=== PATIENT | female | born 1985 | race Caucasian/White ===

== ENCOUNTER → 2017-12-25 | Outpatient (REF) | payer OTHER ==
[2017-12-25 15:54] LABS: BASO % 0.4 % (0.0-1.0); EOS # 0.1 10^3/uL (0.0-0.50); HEMOGLOBIN 12.8 g/dl (12.0-16.0); IMMATURE GRANULOCYTE % 0.4 % (0-3.0); LYMPH % 27.9 % (24.0-44.0); MEAN CORPUSCULAR HEMOGLOBIN 28.3 pg (27.0-33.0); MEAN CORPUSCULAR VOLUME 88.5 fl (80.0-96.0); MONO # 0.8 10^3/uL (0.0-0.8); MONO % 10.7 % (0.0-5.0); NEUTROPHILS # 4.2 10^3/uL (1.8-7.7); NEUTROPHILS % 58.6 % (36.0-66.0); PLATELET COUNT, AUTOMATED 290 10^3/uL (150-450); RED BLOOD COUNT 4.52 10^6/uL (4.00-5.40); RED CELL DISTRIBUTION WIDTH 14.5 % (11.5-14.5); WHITE BLOOD COUNT 7.1 10^3/uL (4.0-10.0)
[2017-12-25 16:25] LABS: ALBUMIN 3.9 GM/DL (3.2-5.2); ALBUMIN/GLOBULIN RATIO 1.18 (1.00-1.93); ALKALINE PHOSPHATASE 83 U/L (45-117); ALT/SGPT 35 U/L (12-78); ANION GAP 5 MEQ/L (8-16); AST/SGOT 15 U/L (7-37); BILIRUBIN,TOTAL 0.3 MG/DL (0.2-1.0); BLOOD UREA NITROGEN 16 MG/DL (7-18); CALCIUM LEVEL 8.5 MG/DL (8.5-10.1); CARBON DIOXIDE LEVEL 28 MEQ/L (21-32); CHLORIDE LEVEL 107 MEQ/L (98-107); FREE T4 0.93 NG/DL (0.76-1.46); GLOMERULAR FILTRATION RATE > 60.0 (>60); GLUCOSE, FASTING 90 MG/DL (70-100); POTASSIUM SERUM 3.9 MEQ/L (3.5-5.1); SODIUM LEVEL 140 MEQ/L (136-145); THYROID STIMULATING HORMONE 0.902 uIU/ML (0.358-3.740); TOTAL PROTEIN 7.2 GM/DL (6.4-8.2)
[2017-12-25 16:41] LABS: PTH INTACT 82.8 PG/ML (18.5-88.0); TOTAL 25(OH) VITAMIN D 12.9 NG/ML (30.0-100.0); VITAMIN B12 LEVEL 460 PG/ML (247-911)
[2017-12-26 09:01] LABS: CONTROL LINE HPYORI INT CTR LINE PRESENT; H PYLORI QUALITATIVE IgG NEGATIVE (NEGATIVE)
== END ==
LOC: M SFHCPLAZ 14:41
DX: R10.9 Unspecified abdominal pain (principal); Z79.1 Long term (current) use of non-steroidal anti-inflammatories (NSAID); F31.30 Bipolar disorder, current episode depressed, mild or moderate severity, unspecified; E55.9 Vitamin D deficiency, unspecified
CPT/HCPCS: 84443

== ENCOUNTER → 2018-03-03 | Outpatient (CLI) | payer OTHER | LOC: M WHC 09:24 | DX: R10.2 Pelvic and perineal pain (principal); N83.201 Unspecified ovarian cyst, right side | CPT/HCPCS: 76830 ==

== ENCOUNTER → 2018-05-15 | Outpatient (REF) | payer OTHER | LOC: M SFHCPLAZ 19:22 | DX: Z12.4 Encounter for screening for malignant neoplasm of cervix (principal); R87.612 Low grade squamous intraepithelial lesion on cytologic smear of cervix (LGSIL) | CPT/HCPCS: 88142 ==

== ENCOUNTER → 2018-06-12 | Outpatient (REF) | payer OTHER ==
[2018-06-12 15:43] LABS: BASO % 0.5 % (0.0-1.0); EOS # 0.1 10^3/uL (0.0-0.50); EOS % 1.6 % (0.0-3.0); HEMATOCRIT 43.6 % (36.0-47.0); HEMOGLOBIN 14.4 g/dl (12.0-15.5); IMMATURE GRANULOCYTE % 0.1 % (0-3.0); LYMPH # 3.1 10^3/uL (1.5-4.5); LYMPH % 37.6 % (24.0-44.0); MEAN CORPUSCULAR HEMOGLOBIN 29.1 pg (27.0-33.0); MEAN CORPUSCULAR VOLUME 88.1 fl (80.0-96.0); MONO # 0.6 10^3/uL (0.0-0.8); MONO % 6.8 % (0.0-5.0); NEUTROPHILS # 4.3 10^3/uL (1.8-7.7); NEUTROPHILS % 53.4 % (36.0-66.0); PLATELET COUNT, AUTOMATED 285 10^3/uL (150-450); RED BLOOD COUNT 4.95 10^6/uL (4.00-5.40); RED CELL DISTRIBUTION WIDTH 13.7 % (11.5-14.5); WHITE BLOOD COUNT 8.1 10^3/uL (4.0-10.0)
[2018-06-12 16:04] LABS: ESTIMATED AVERAGE GLUCOSE 117 MG/DL (60-110); HEMOGLOBIN A1c 5.7 %
[2018-06-12 16:14] LABS: FREE T4 0.87 NG/DL (0.76-1.46); THYROID STIMULATING HORMONE 0.495 uIU/ML (0.358-3.740)
== END ==
LOC: M SFHCPLAZ 13:48
DX: R53.83 Other fatigue (principal)

== ENCOUNTER → 2018-06-26 | Outpatient (CLI) | payer OTHER | LOC: M WHC 10:01 | DX: N83.201 Unspecified ovarian cyst, right side (principal) | CPT/HCPCS: 76830 ==

== ENCOUNTER → 2018-07-14 | Outpatient (REF) | payer OTHER | LOC: M SFHCWAGY 13:53 | DX: R87.612 Low grade squamous intraepithelial lesion on cytologic smear of cervix (LGSIL) (principal) ==

== ENCOUNTER 2018-08-14 05:45 | Day surgery (SDC) | payer OTHER ==
[2018-08-14 06:45] LABS: CONTROL LINE UCG INT CTR LINE PRESENT; URINE PREG TEST NEGATIVE (NEGATIVE)
[2018-08-14] MEDS: LR 1,000 ML IV (06:47)
[2018-08-14] MEDS ORDERED: PROPOFOL 200 MG/20 ML VIAL As Ordered (08:41)
[2018-08-14] MEDS ORDERED: dexameTHASONE 4 MG/ML 1ML VIAL (J1100) As Ordered (08:41)
[2018-08-14] MEDS ORDERED: fentaNYL 250 MCG/5 ML INJECTION (J3010) As Ordered (08:41)
[2018-08-14] MEDS ORDERED: LIDOCAINE 2% INJ 100 MG/5 ML SDV (FOR ANES.) As Ordered (08:41)
[2018-08-14] MEDS ORDERED: ROCURONIUM BROMIDE 50 MG/5 ML VIAL As Ordered (08:41)
[2018-08-14] MEDS ORDERED: MIDAZOLAM INJ 2 MG/2 ML VIAL (J2250) As Ordered (08:41)
[2018-08-14] MEDS ORDERED: ONDANSETRON 4MG/2ML VIAL (J2405) As Ordered (08:45)
[2018-08-14] MEDS ORDERED: KETOROLAC 60 MG/2 ML VIAL (J1885) As Ordered (08:45)
[2018-08-14] MEDS ORDERED: NEOSTIGMINE 10 MG/10 ML VIAL (J2710) As Ordered (08:47)
[2018-08-14] MEDS ORDERED: GLYCOPYRROLATE INJ 0.2 MG/ML 2 ML VIAL As Ordered ×2 (08:47→09:00)
[2018-08-14] MEDS ORDERED: METOCLOPRAMIDE INJ 10MG/2ML VIAL (J2765) IV (09:30)
[2018-08-14] MEDS ORDERED: KETOROLAC 30 MG/ML VIAL (J1885) IV (09:30)
[2018-08-14] MEDS ORDERED: LR 1,000 ML IV ×2 (09:30→09:45)
[2018-08-14] MEDS ORDERED: MEPERIDINE INJ 25 MG/ML VIAL (J2175) IV (09:30)
[2018-08-14] MEDS ORDERED: ONDANSETRON 4MG/2ML VIAL (J2405) IV (09:30)
[2018-08-14] MEDS: fentaNYL 100 MCG/2 ML INJECTION (J3010) IV ×4 (09:40→09:55)
[2018-08-14] MEDS ORDERED: NORCO, ANEXSIA 5/325MG TABLET (HYDROcodone/ACETAMINOPHEN) PO (09:45)
[2018-08-14] MEDS ORDERED: IBUPROFEN 600 MG TAB PO (09:45)
[2018-08-14] MEDS: PERCOCET 5MG/325MG TAB PO ×2 (09:50→11:04)
[2018-08-14] MEDS ORDERED: PERCOCET 5MG/325MG TAB As Ordered (11:03)
== END 2018-08-14 11:20 | disposition home or self-care (01) ==
LOC: M SDC 05:45
DX: N83.291 Other ovarian cyst, right side (principal); N80.9 Endometriosis, unspecified; J45.909 Unspecified asthma, uncomplicated; G43.909 Migraine, unspecified, not intractable, without status migrainosus; F32.9 Major depressive disorder, single episode, unspecified; E78.00 Pure hypercholesterolemia, unspecified; K58.9 Irritable bowel syndrome, unspecified; M54.2 Cervicalgia; F41.9 Anxiety disorder, unspecified; F31.9 Bipolar disorder, unspecified; M54.81 Occipital neuralgia; R56.9 Unspecified convulsions; Z79.899 Other long term (current) drug therapy
CPT/HCPCS: 58662

== ENCOUNTER 2018-09-26 09:30 | Day surgery (SDC) | payer OTHER ==
[~2018-09-26] VITALS: Ht 167.6 cm; Wt 74.4 kg
[~2018-09-26 09:30] MED LIST: BACT400T PO; BCP PO; CYMB60CA3 PO; DULO1CAP3 PO; ENSKTAB PO; IBUP-1022 PO; NAPR-49 PO; NEXI40GR PO; NORT10CA2 PO; NORT25CA2 PO; NORT75CA2 PO; NS 1,000 ML IV ONE; PROBCAP4 PO; PROP10TA56 PO; SAFYTAB PO; TOPA50TA PO; TOPI25TA10 PO; VITA500046 PO; ZOLM5TAB2 PO; ZONI25CA2 PO; [UNRECOGNIZED DRUG - CODE] PO; [UNRECOGNIZED DRUG - REMARK] PO
[2018-09-26] MEDS ORDERED: PROPOFOL 200 MG/20 ML VIAL As Ordered ONE (10:02)
[2018-09-26] MEDS ORDERED: LIDOCAINE 2% INJ 100 MG/5 ML SDV (FOR ANES.) As Ordered ONE (10:06)
[2018-09-26] MEDS ORDERED: KETOROLAC 60 MG/2 ML VIAL (J1885) As Ordered ONE (11:12)
--- NOTE | 2018-09-26 11:49 | ROOR ---
Patient Name: Apurva Woods Procedure Date: 09/26/2018 11:05 AM Date of : 1985 Age: 33 [facility] Gender: Female Note Status: Finalized Procedure: Colonoscopy Indications: Chronic diarrhea Providers: Jose G Barajas MD Referring MD: Breanne Cui NP Requesting Provider: Medicines: Monitored Anesthesia Care Complications: No immediate complications. Procedure: Pre-Anesthesia Assessment: - Prior to the procedure, a History and Physical was performed, and patient medications and allergies were reviewed. The patient is competent. The risks and benefits of the procedure and the sedation options and risks were discussed with the patient. All questions were answered and informed consent was obtained. Patient identification and proposed procedure were verified by the physician, the nurse and the anesthesiologist in the procedure room. Mental Status Examination: alert and oriented. Airway Examination: normal oropharyngeal airway and neck mobility. Respiratory Examination: clear to auscultation. CV Examination: normal. Prophylactic Antibiotics: The patient does not require prophylactic antibiotics. Prior Anticoagulants: The patient has taken no previous anticoagulant or antiplatelet agents. ASA Grade Assessment: II - A patient with mild systemic disease. After reviewing the risks and benefits, the patient was deemed in satisfactory condition to undergo the procedure. The anesthesia plan was to use monitored anesthesia care (MAC). Immediately prior to administration of medications, the patient was re-assessed for adequacy to receive sedatives. The heart rate, respiratory rate, oxygen saturations, blood pressure, adequacy of pulmonary ventilation, and response to care were monitored throughout the procedure. The physical status of the patient was re-assessed after the procedure. The Colonoscope was introduced through the anus and advanced to the terminal ileum, with identification of the appendiceal orifice and IC valve. The colonoscopy was performed without difficulty. The patient tolerated the procedure well. The quality of the bowel preparation was poor and inadequate. The terminal ileum, ileocecal valve, appendiceal orifice, and rectum were photographed. Scope insertion time was 4 minutes. Scope withdrawal time was 10 minutes. The total duration of the procedure was 14 minutes. Findings: The perianal and digital rectal examinations were normal. The terminal ileum appeared normal. A moderate amount of semi-liquid stool was found in the entire colon, interfering with visualization. Lavage of the area was performed using a large amount of sterile water, resulting in incomplete clearance with fair visualization. There is no endoscopic evidence of mass, stricture or ulcerations in the entire colon. Biopsies for histology were taken with a cold forceps from the right colon, left colon and rectosigmoid colon for evaluation of microscopic colitis. Verification of patient identification for the specimen was done by the physician and nurse using the patient's name, date and medical record number. Estimated blood loss was minimal. Non-bleeding external and internal hemorrhoids were found during retroflexion. The hemorrhoids were small. Impression: - Preparation of the colon was poor. - Preparation of the colon was inadequate. - The examined portion of the ileum was normal. - Stool in the entire examined colon. - Non-bleeding external and internal hemorrhoids. Recommendation: - Patient has a contact number available for emergencies. The signs and symptoms of potential delayed complications were discussed with the patient. Return to normal activities tomorrow. Written discharge instructions were provided to the patient. - High fiber diet. - Continue present medications. - Await pathology results. - Repeat colonoscopy date to be determined after pending pathology results are reviewed because the bowel preparation was poor and based on the biopsy results. - Based on the biopsy results you will receive a phone call from GI clinic in 2-3 weeks to review the pathology results AND/OR your results will be faxed to your Primary care physician. - Return to primary care physician. Jose G Barajas MD Jose G Barajas MD 09/26/2018 11:48:51 AM This report has been signed electronically. Number of Addenda: 0 Note Initiated On: 09/26/2018 11:05 AM Estimated Blood Loss: Estimated blood loss was minimal.
[2018-09-26 12:10] VITALS: BP 113/65
== END 2018-09-26 12:09 | disposition home or self-care (01) ==
LOC: M OPP 09:30
PROVIDERS: ATTEND Internal Medicine Gastroenterology
DX: K58.0 Irritable bowel syndrome with diarrhea (principal); K64.8 Other hemorrhoids; F31.9 Bipolar disorder, unspecified; E78.5 Hyperlipidemia, unspecified; G43.909 Migraine, unspecified, not intractable, without status migrainosus; J45.909 Unspecified asthma, uncomplicated; Z79.899 Other long term (current) drug therapy
CPT/HCPCS: 43239; 88305; J1885

== ENCOUNTER → 2018-11-06 | Outpatient (REF) | payer OTHER ==
[~2018-11-06] MED LIST changes: -NAPR-49 PO; +NAPR-50 PO; -NS 1,000 ML IV ONE
[2018-11-06 18:03] LABS: MAGNESIUM LEVEL 2.5 MG/DL (1.8-2.4); RHEUMATOID FACTOR QUANT < 10.0 IU/ML (<15.0)
[2018-11-06 18:15] LABS: VITAMIN B12 LEVEL 459 PG/ML (247-911)
[2018-11-11 00:07] LABS: ANTINUCLEAR ANTIBODIES DIRECT Negative (Negative); CYCLIC CITRULLINATED PEPTIDE 5 units (0-19); IgG P18 AB Absent (.); IgG P23 AB Absent (.); IgG P28 AB Absent (.); IgG P30 AB Absent (.); IgG P39 AB Absent (.); IgG P41 AB Present (.); IgG P45 AB Absent (.); IgG P66 AB Absent (.); IgG P93 AB Absent (.); IgM P23 AB Absent (.); IgM P39 AB Absent (.); IgM P41 AB Absent (.); LYME IgG WB INTERPRETATION Negative (.); LYME IgM WB INTERPRETATION Negative (.)
== END ==
LOC: M SFHCPLAZ 15:01
PROVIDERS: ATTEND Nurse Practitioner Adult Health
DX: M25.60 Stiffness of unspecified joint, not elsewhere classified (principal)

== ENCOUNTER → 2019-05-18 | Outpatient (CLI) | payer OTHER ==
[~2019-05-18] MED LIST changes: -DULO1CAP3 PO; +DULO1CAP6 PO; +ENSK1TAB3 PO; -ENSKTAB PO; -NAPR-50 PO; +NAPR-837 PO
--- NOTE | 2019-05-18 18:01 | REP ---
The clinical: Pelvic pain. Technique: Transabdominal pelvic ultrasound followed by transvaginal examination for better evaluation of the endometrium and adnexa with color Doppler evaluation of the ovaries. Comparison: 06/26/2018 Findings: Bladder is unremarkable and measures 7.1 x 3.3 x 6.3 cm. Heterogeneous retroverted uterus measures 5.7 x 3.9 x 5.2 cm. Endometrial complex measures 7.8 mm thickness. No discrete uterine or endometrial abnormality identified. Bilateral ovaries are normal in vascularity without torsion. Right ovary measures 6.9 x 4.6 x 5.6 cm (RI 0.47) and includes 5.1 x 4.1 x 4.8 cm complex cyst with internal echogenicity. Left ovary measures 3.5 x 1.3 x 1.5 cm (RI 0.77). No pelvic free fluid or adnexal mass lesion. Impression: 1. Relatively normal uterus and left ovary. 2. 5.1 cm complex cyst in the right ovary essentially unchanged compared to 2018. Electronically Signed by Alok Blackman MD 05/18/2019 05:53 P
== END ==
LOC: M RAD 17:05
PROVIDERS: ATTEND Obstetrics & Gynecology
DX: R10.2 Pelvic and perineal pain (principal)

== ENCOUNTER → 2019-07-06 | Outpatient (REF) | payer OTHER ==
[2019-07-06 16:51] LABS: APPEARANCE, URINE HAZY (CLEAR); BACTERIA, URINE AUTO NEGATIVE (NEGATIVE); BILIRUBIN, URINE AUTO NEGATIVE (NEGATIVE); BLOOD, URINE BLOOD NEGATIVE (NEGATIVE); COLOR, URINE YELLOW (YELLOW); GLUCOSE, URINE (UA) AUTO NEGATIVE (NEGATIVE); KETONE, URINE AUTO NEGATIVE (NEGATIVE); LEUKOCYTE ESTERASE, URINE AUTO NEGATIVE (NEGATIVE); MUCUS, URINE SMALL (NEGATIVE); NITRITE, URINE AUTO NEGATIVE (NEGATIVE); PROTEIN, URINE AUTO NEGATIVE (NEGATIVE); RBC, URINE AUTO 0 /HPF (0-3); SPECIFIC GRAVITY URINE AUTO 1.021 (1.002-1.035); SQUAMOUS EPITHELIAL CELL UR AU 2 /HPF (0-6); UROBILINOGEN, URINE AUTO 0.2 mg/dL (0.0-2.0); WBC, URINE AUTO 2 /HPF (0-3)
== END ==
LOC: M LABNEURO 12:40
PROVIDERS: ATTEND Psychiatry & Neurology Neurology
DX: N39.0 Urinary tract infection, site not specified (principal)

== ENCOUNTER → 2019-07-28 | Outpatient (CLI) | payer OTHER ==
--- NOTE | 2019-07-28 10:07 | REP ---
PELVIC ULTRASOUND: Real-time sonographic evaluation of the pelvis performed utilizing transabdominal and endovaginal technique. Comparison made with multiple prior exams dating back to 03/03/2018. Bladder measures 5.8 x 6.5 x 8.2 cm. Uterus measures 6.1 x 3.7 x 4.6 cm. Endometrial thickness is 13 mm. Dominant right ovarian cyst is again seen essentially unchanged in size compared to prior study of 03/03/2018. There are increased low level echoes diffusely throughout this complex cyst which have increased since prior studies. Left ovary is normal in size and echotexture 1.8 x 1.3 x 1.5 cm. There is no other adnexal mass or free fluid. There is no torsion of either ovary with duplex Doppler evaluation. IMPRESSION: Complex cyst right ovary has remained unchanged in size compared to prior ultrasound 03/03/2018. There are increased low level echoes throughout the cyst compared to that prior study as well as compared to the other two intervening ultrasounds. Electronically Signed by Kermit Flood MD 07/28/2019 10:32 A
== END ==
LOC: M RAD 09:07
PROVIDERS: ATTEND Obstetrics & Gynecology
DX: N83.291 Other ovarian cyst, right side (principal)

== ENCOUNTER → 2019-09-09 | Day surgery (SDC) | payer OTHER ==
[~2019-09-09] VITALS: Ht 167.6 cm; Wt 79.3 kg
[~2019-09-09] MED LIST changes: +ACETAMINOPHEN 1000MG 100ML IV BTL (OFIRMEV) (J0131 PER 10MG) As Ordered ONE; +AMIT25TA PO; +ARIP1TAB6 PO; +BUPIVACAINE HCL 0.25% 30 ML VIAL As Ordered ONE; +COLA100C5 PO; +DESFLURANE 240 ML INHALANT As Ordered ONE; +DULO30CA9 PO; +EXCETAB33 PO; +GABA-845 PO; +HYDROmorphone HCL 2 MG/ML 1ML VIAL (J1170) As Ordered ONE; +IBUP80TA PO; +KETOROLAC 60 MG/2 ML VIAL (J1885) As Ordered ONE; +LIDOCAINE 1% MDV 20ML VIAL SQ PRN; +LIDOCAINE 2% INJ 100 MG/5 ML SDV (FOR ANES.) As Ordered ONE; +LITH1TAB PO; +LR 1,000 ML IV ONE; +MEDR150I10 IM; +METOCLOPRAMIDE INJ 10MG/2ML VIAL (J2765) As Ordered ONE; +MIDAZOLAM INJ 2 MG/2 ML VIAL (J2250) As Ordered ONE; +ONDANSETRON 4MG/2ML VIAL (J2405) As Ordered ONE; +ONDANSETRON 4MG/2ML VIAL (J2405) IV ONE; +OXYC1TAB23 PO; +PERCOCET PO; +PHENYLephrine HCL 500 MCG/5 ML (100MCG/ML) SYRINGE (J2370) As Ordered ONE; +PROPOFOL 200 MG/20 ML VIAL As Ordered ONE; +ROCURONIUM BROMIDE 50 MG/5 ML VIAL As Ordered ONE; +SUGAMMADEX SODIUM 500 MG/5 ML VIAL (BRIDION) As Ordered ONE; +VITA500054 PO; +ZOLM5TAB14 PO; -ZOLM5TAB2 PO; +ZONI100C2 PO; +dexameTHASONE 4 MG/ML 1ML VIAL (J1100) As Ordered ONE; +fentaNYL 100 MCG/2 ML INJECTION (J3010) As Ordered ONE; +fentaNYL 250 MCG/5 ML INJECTION (J3010) As Ordered ONE
[2019-09-09 13:42] LABS: HEMATOCRIT 44.9 % (36.0-47.0); HEMOGLOBIN 14.5 g/dl (12.0-15.5); MEAN CORPUSCULAR HEMOGLOBIN 29.2 pg (27.0-33.0); MEAN CORPUSCULAR HGB CONC 32.3 g/dl (32.0-36.5); MEAN CORPUSCULAR VOLUME 90.3 fl (80.0-96.0); PLATELET COUNT, AUTOMATED 346 10^3/uL (150-450); RED BLOOD COUNT 4.97 10^6/uL (4.00-5.40); WHITE BLOOD COUNT 9.7 10^3/uL (4.0-10.0)
[2019-09-09 13:58] LABS: HCG, SERUM QUALITATIVE NEGATIVE (NEGATIVE)
[2019-09-09 14:14] VITALS: BP 123/80
== END | disposition home or self-care (01) ==
LOC: M SDC 13:16
PROVIDERS: ATTEND Obstetrics & Gynecology
DX: R10.2 Pelvic and perineal pain (principal); Z53.20 Procedure and treatment not carried out because of patient's decision for unspecified reasons
CPT/HCPCS: 36415; 84703; 85027; 86850; 86900; 86901; J2405

== ENCOUNTER 2019-09-10 12:23 | Day surgery (SDC) | payer OTHER ==
[~2019-09-10] VITALS: Ht 167.6 cm; Wt 83.5 kg
[~2019-09-10 12:23] MED LIST changes: -ACETAMINOPHEN 1000MG 100ML IV BTL (OFIRMEV) (J0131 PER 10MG) As Ordered ONE; -BUPIVACAINE HCL 0.25% 30 ML VIAL As Ordered ONE; -COLA100C5 PO; -DESFLURANE 240 ML INHALANT As Ordered ONE; -HYDROmorphone HCL 2 MG/ML 1ML VIAL (J1170) As Ordered ONE; -IBUP80TA PO; -KETOROLAC 60 MG/2 ML VIAL (J1885) As Ordered ONE; -LIDOCAINE 1% MDV 20ML VIAL SQ PRN; -LIDOCAINE 2% INJ 100 MG/5 ML SDV (FOR ANES.) As Ordered ONE; -LR 1,000 ML IV ONE; -METOCLOPRAMIDE INJ 10MG/2ML VIAL (J2765) As Ordered ONE; -MIDAZOLAM INJ 2 MG/2 ML VIAL (J2250) As Ordered ONE; -ONDANSETRON 4MG/2ML VIAL (J2405) As Ordered ONE; -ONDANSETRON 4MG/2ML VIAL (J2405) IV ONE; -OXYC1TAB23 PO; -PHENYLephrine HCL 500 MCG/5 ML (100MCG/ML) SYRINGE (J2370) As Ordered ONE; -PROPOFOL 200 MG/20 ML VIAL As Ordered ONE; -ROCURONIUM BROMIDE 50 MG/5 ML VIAL As Ordered ONE; -SUGAMMADEX SODIUM 500 MG/5 ML VIAL (BRIDION) As Ordered ONE; -dexameTHASONE 4 MG/ML 1ML VIAL (J1100) As Ordered ONE; -fentaNYL 100 MCG/2 ML INJECTION (J3010) As Ordered ONE; -fentaNYL 250 MCG/5 ML INJECTION (J3010) As Ordered ONE
[2019-09-10] MEDS ORDERED: fentaNYL 250 MCG/5 ML INJECTION (J3010) ONE (13:56)
[2019-09-10] MEDS ORDERED: SUGAMMADEX SODIUM 500 MG/5 ML VIAL (BRIDION) ONE (13:56)
[2019-09-10] MEDS ORDERED: dexameTHASONE 4 MG/ML 1ML VIAL (J1100) ONE (13:56)
[2019-09-10] MEDS ORDERED: HYDROmorphone HCL 2 MG/ML 1ML VIAL (J1170) ONE (13:56)
[2019-09-10] MEDS ORDERED: MIDAZOLAM INJ 2 MG/2 ML VIAL (J2250) ONE (13:56)
[2019-09-10] MEDS ORDERED: LIDOCAINE 2% INJ 100 MG/5 ML SDV (FOR ANES.) ONE (13:57)
[2019-09-10] MEDS ORDERED: PROPOFOL 200 MG/20 ML VIAL ONE (13:57)
[2019-09-10] MEDS ORDERED: ONDANSETRON 4MG/2ML VIAL (J2405) ONE (13:57)
[2019-09-10] MEDS ORDERED: METOCLOPRAMIDE INJ 10MG/2ML VIAL (J2765) ONE (13:57)
[2019-09-10] MEDS ORDERED: METHYLENE BLUE 0.5% (5MG/ML) 10 ML AMP (PROVAYBLUE)(Q9968 PER 1MG) As Ordered ONE (14:27)
[2019-09-10] MEDS ORDERED: SILVER NITRATE APPLICATOR As Ordered ONE (14:27)
[2019-09-10] MEDS ORDERED: BUPIVACAINE HCL 0.25% 30 ML VIAL As Ordered ONE (14:28)
[2019-09-10] MEDS ORDERED: PHENYLephrine HCL 500 MCG/5 ML (100MCG/ML) SYRINGE (J2370) ONE (15:21)
[2019-09-10] MEDS ORDERED: ACETAMINOPHEN 1000MG 100ML IV BTL (OFIRMEV) (J0131 PER 10MG) ONE (15:28)
[2019-09-10] MEDS ORDERED: ROCURONIUM BROMIDE 50 MG/5 ML VIAL ONE (17:22)
[2019-09-10] MEDS ORDERED: DESFLURANE 240 ML INHALANT ONE (18:08)
[2019-09-10] MEDS ORDERED: KETOROLAC 60 MG/2 ML VIAL (J1885) ONE (18:18)
[2019-09-10] MEDS ORDERED: MEPERIDINE INJ 25 MG/ML VIAL (J2175) As Ordered ONE (18:28)
[2019-09-10] MEDS: MEPERIDINE INJ 25 MG/ML VIAL (J2175) IV PRN ×2 (18:30→18:37)
[2019-09-10] MEDS ORDERED: OXYC1TAB23 PO (18:37)
[2019-09-10] MEDS ORDERED: ESMOLOL INJ 100MG/10ML VIAL As Ordered ONE (18:37)
[2019-09-10] MEDS ORDERED: fentaNYL 100 MCG/2 ML INJECTION (J3010) As Ordered ONE (18:38)
[2019-09-10] MEDS ORDERED: COLA100C5 PO (18:38)
[2019-09-10] MEDS ORDERED: IBUP80TA PO (18:38)
[2019-09-10] MEDS: fentaNYL 100 MCG/2 ML INJECTION (J3010) IV PRN ×4 (18:38→19:02)
[2019-09-10] MEDS: oxyCODONE 5MG TAB PO PRN ×2 (18:38→19:10)
[2019-09-10] MEDS ORDERED: oxyCODONE 5MG TAB As Ordered ONE ×2 (18:38→19:11)
[2019-09-10] MEDS ORDERED: ceFAZolin 1GM INJ (J0690 PER 500MG) As Ordered ONE (18:49)
[2019-09-10] MEDS ORDERED: ceFAZolin SOD 2 GM in IV 1 EA IV ONE (18:50)
[2019-09-10] MEDS ORDERED: ONDANSETRON 4MG/2ML VIAL (J2405) IV PRN ×2 (19:45→22:00)
[2019-09-10] MEDS ORDERED: LR 1,000 ML IV SCH ×2 (19:45→21:00)
[2019-09-10] MEDS ORDERED: HYDROMORPHONE HCL 0.5 MG/ 0.5 ML SYRINGE (J1170 PER 1) IV PRN (19:45)
[2019-09-10] MEDS ORDERED: LACTATED RINGER'S 500 ML IV ONE (20:00)
[2019-09-10 21:35] VITALS: BP 126/84
[2019-09-10] MEDS ORDERED: PROMETHAZINE INJ 25 MG/ML VIAL (J2550) IV PRN (22:00)
[2019-09-10] MEDS ORDERED: PERCOCET 5MG/325MG TAB PO PRN ×2 (22:00)
[2019-09-10 22:04] VITALS: BP 126/81
[2019-09-10] MEDS: KETOROLAC 30 MG/ML VIAL (J1885) IV SCH (22:27)
[2019-09-10] MEDS: LR 1,000 ML IV SCH (22:28)
[2019-09-10] MEDS: DOCUSATE SODIUM 100 MG CAP PO SCH (22:30)
[2019-09-10 23:00] VITALS: BP 128/82
[2019-09-11 00:20] VITALS: BP 130/73
[2019-09-11 01:10] VITALS: BP 134/78
[2019-09-11 02:09] VITALS: BP 132/80
[2019-09-11] MEDS: KETOROLAC 30 MG/ML VIAL (J1885) IV SCH ×2 (05:07→10:00)
[2019-09-11 06:06] LABS: BASO % 0.1 % (0.0-1.0); HEMATOCRIT 36.2 % (36.0-47.0); HEMOGLOBIN 11.6 g/dl (12.0-15.5); LYMPH # 1.6 10^3/uL (1.5-5.0); LYMPH % 14.4 % (24.0-44.0); MEAN CORPUSCULAR HEMOGLOBIN 29.2 pg (27.0-33.0); MEAN CORPUSCULAR VOLUME 91.2 fl (80.0-96.0); MONO # 0.7 10^3/uL (0.0-0.8); MONO % 6.7 % (0.0-5.0); NEUTROPHILS # 8.6 10^3/uL (1.5-8.5); NEUTROPHILS % 78.4 % (36.0-66.0); PLATELET COUNT, AUTOMATED 283 10^3/uL (150-450); RED BLOOD COUNT 3.97 10^6/uL (4.00-5.40)
[2019-09-11] MEDS: LR 1,000 ML IV SCH (06:26)
[2019-09-11 06:43] VITALS: BP 124/75
[2019-09-11] MEDS: DOCUSATE SODIUM 100 MG CAP PO SCH (08:37)
[2019-09-12] MEDS ORDERED: IBUPROFEN 800 MG TAB PO SCH
== END 2019-09-11 11:15 | disposition home or self-care (01) ==
LOC: M SDC 12:23 → M MS5PR 21:40 → M SDC 09-11 11:15
PROVIDERS: ATTEND Obstetrics & Gynecology
DX: R10.2 Pelvic and perineal pain (principal); D27.9 Benign neoplasm of unspecified ovary; N73.6 Female pelvic peritoneal adhesions (postinfective); F31.9 Bipolar disorder, unspecified; F41.9 Anxiety disorder, unspecified; G43.909 Migraine, unspecified, not intractable, without status migrainosus; K58.9 Irritable bowel syndrome, unspecified; J45.909 Unspecified asthma, uncomplicated; K21.9 Gastro-esophageal reflux disease without esophagitis; M54.2 Cervicalgia; M79.7 Fibromyalgia; F12.90 Cannabis use, unspecified, uncomplicated; Z79.899 Other long term (current) drug therapy; Z86.69 Personal history of other diseases of the nervous system and sense organs
CPT/HCPCS: 36415; 58350; 58662; 85025; 88305; J0131; J0690; J1100; J1170; J1885; J2175; J2250; J2370; J2405; J2765; J3010; Q9968

== ENCOUNTER → 2019-09-14 | Outpatient (REF) | payer OTHER ==
[~2019-09-14] MED LIST changes: +COLA100C5 PO; +IBUP80TA PO; +OXYC1TAB23 PO
[2019-09-14 14:10] LABS: ALBUMIN 4.2 GM/DL (3.2-5.2); ALT/SGPT 32 U/L (12-78); BILIRUBIN,TOTAL 0.3 MG/DL (0.2-1.0); BLOOD UREA NITROGEN 16 MG/DL (7-18); CALCIUM LEVEL 9.1 MG/DL (8.5-10.1); CARBON DIOXIDE LEVEL 24 MEQ/L (21-32); CHLORIDE LEVEL 108 MEQ/L (98-107); CREATININE FOR GFR 1.08 MG/DL (0.55-1.30); FREE T4 0.84 NG/DL (0.76-1.46); GLOMERULAR FILTRATION RATE > 60.0 (>60); GLUCOSE, FASTING 90 MG/DL (70-100); POTASSIUM SERUM 4.3 MEQ/L (3.5-5.1); PTH INTACT 22.5 PG/ML (18.5-88.0); SODIUM LEVEL 139 MEQ/L (136-145); TOTAL PROTEIN 7.9 GM/DL (6.4-8.2)
== END ==
LOC: M SFHCPLAZ 11:27
PROVIDERS: ATTEND Nurse Practitioner Adult Health
DX: E83.52 Hypercalcemia (principal)

== ENCOUNTER → 2019-10-01 | Outpatient (CLI) | payer OTHER ==
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
== END ==
LOC: M PAIN 14:30
PROVIDERS: ATTEND Nurse Practitioner Family
DX: M50.20 Other cervical disc displacement, unspecified cervical region (principal); M54.12 Radiculopathy, cervical region; G89.29 Other chronic pain; G43.909 Migraine, unspecified, not intractable, without status migrainosus; Z86.59 Personal history of other mental and behavioral disorders; J45.909 Unspecified asthma, uncomplicated; E55.9 Vitamin D deficiency, unspecified; M79.7 Fibromyalgia; Z79.899 Other long term (current) drug therapy

== ENCOUNTER → 2019-11-10 | Outpatient (CLI) | payer OTHER ==
[~2019-11-10] MED LIST changes: +ZONI100C17 PO; -ZONI100C2 PO; +ZONI25CA13 PO; -ZONI25CA2 PO
== END ==
LOC: M PAIN 14:00
PROVIDERS: ATTEND Anesthesiology
DX: Z53.20 Procedure and treatment not carried out because of patient's decision for unspecified reasons (principal)

== ENCOUNTER → 2019-12-03 | Outpatient (CLI) | payer OTHER ==
[~2019-12-03] MED LIST changes: +ISOVUE-M 300 61% 15ML VIAL (Q9967) As Ordered ONE; +LIDOCAINE 1% SDV INJ 30 ML VIAL As Ordered ONE; +NORCO, ANEXSIA 5/325MG TABLET (HYDROcodone/ACETAMINOPHEN) As Ordered ONE; +diazePAM 2 MG TAB As Ordered ONE; +methylPREDNISolone SUSP 40 MG/ML (DEPO-medrol) VIAL (J1030) As Ordered ONE
--- NOTE | 2019-12-03 13:13 | REP ---
Partial cervical spine: Two views. History: Cervical epidural steroid injection for pain. 11 seconds of fluoroscopy time is reported. Findings: A sequence of two last image hold fluoroscopically obtained spot radiographs of the cervicothoracic junction document needle position and contrast injection associated with injection procedure. Electronically Signed by Law Flores MD 12/03/2019 01:05 P
--- NOTE | 2019-12-22 05:25 | ECWPNPC ---
PATIENT NAME: GHAZALA FOX : 1985 GENDER: FEMALE VISIT DATE: 12/03/2019 DISCHARGE DATE: 12/03/19 1332 VISIT LOCKED DATE TIME: PHYSICIAN: HANNAH MOSES MD RESOURCE: HANNAH MOSES MD REASON FOR APPOINTMENT 1. CATE HISTORY OF PRESENT ILLNESS HISTORY OF PRESENT ILLNESS: PAIN THE PATIENT DESCRIBES THE PAIN... FALL RISK SCREENING: SCREENING :NO FALLS REPORTED IN THE LAST YEAR CURRENT MEDICATIONS TAKING LITHIUM CARBONATE 300 MG CAPSULE 1 CAPSULE AT BEDTIME ORALLY ONCE A DAY, NOTES: 12/02 PM TAKING AMITRIPTYLINE HCL 50 MG TABLET 1 TABLET AT BEDTIME ORALLY ONCE A DAY, NOTES: 12/02 PM TAKING GABAPENTIN 400 MG CAPSULE 1 CAPSULE ORALLY THREE TIMES DAILY, NOTES: 12/03 599 TAKING ZONISAMIDE 100 MG CAPSULE 1 CAPSULE ORALLY TWICE A DAY, NOTES: 12/03 599 TAKING CYMBALTA 30 MG CAPSULE DELAYED RELEASE PARTICLES 1 CAPSULE ORALLY ONCE A DAY WITH 60 MG =90 MG TOTAL PER DAY, NOTES: 12/02 PM TAKING DULOXETINE HCL 60 MG CAPSULE DELAYED RELEASE PARTICLES 1 CAPSULE ORALLY DAILY, NOTES: 12/02 PM TAKING DEPO-PROVERA 150 MG/ML SUSPENSION 1 ML INTRAMUSCULAR , NOTES: 08/2019 EVERY 3 MONTHS TAKING ABILIFY 5 MG TABLET 1 TABLET ORALLY ONCE A DAY, NOTES: 12/02 TAKING CLOBETASOL PROPIONATE 0.05 % CREAM 1 APPLICATION EXTERNALLY ONCE A DAY, NOTES: NONE RECENT TAKING ROPINIROLE HCL 1 MG TABLET TAKE 1 TABLET BY MOUTH EVERY DAY AT BEDTIME ORAL , NOTES: 12/02 PM TAKING PREGABALIN 50 MG CAPSULE (SCHEDULE V DRUG) TAKE 1 CAPSULE BY MOUTH TWICE DAILY . DO NOT EXCEED 2 PER 24 HOURS ORAL , NOTES: 12/03 599 TAKING D3 MAXIMUM STRENGTH 5000 UNIT CAPSULE TAKE 1 CAPSULE BY MOUTH ONCE DAILY , NOTES: 2/12PM NOT-TAKING ESOMEPRAZOLE MAGNESIUM 40 MG CAPSULE DELAYED RELEASE 1 CAPSULE ORALLY ONCE A DAY NOT-TAKING PREVACID 15 MG CAPSULE DELAYED RELEASE 1 CAPSULE ORALLY ONCE A DAY, NOTES: 20MG HAS NOT STARTED YET NOT-TAKING OXYCODONE-ACETAMINOPHEN 7.5-325 MG TABLET 1 TABLET NEEDED 2 DAILY NEEDED ORALLY , NOTES: STOPPED PER PT NOT-TAKING TEMOVATE 0.05 % OINTMENT 1 APPLICATION TO AFFECTED AREA TOPICALLY DAILY TO VAGINAL SKIN AREA PRN DISCOMFORT, NOTES: STOPPED PER PT MEDICATION LIST REVIEWED AND RECONCILED WITH THE PATIENT PAST MEDICAL HISTORY [facility]-JANETH TRICKY-2014 CT HEAD - 10/2013 BIPOLAR DEPRESSION/ANXIETY - 2012 ADM [facility] - 2014 DJD LOWER BACK (X-RAY 08/2013) CERVICAL DISC DISEASE (NEGATIVE C -SPINE 07/2013) (- RA 10/2011, - ALVIN 10/2011, - LYME TITER 01/2011) IBS SEEN BY [facility] IN 2013. ENDOMETRIOSIS/OVARIAN CYST ASTHMA CERVICO-OCCIPITAL NEURALGIA DDD LUMBAR VITAMIN D DEFICIENCY JOINT STIFFNESS PARESTHESIA OF SKIN RIGHT ANTERIOR SHOULDER PAIN HIGH CALCIUM LEVELS FIBROMYALGIA ALLERGIES N.K.D.A. SURGICAL HISTORY COLONOSCOPY 2006 CYST REMOVAL-LEFT OVARY IN 2014 COLONOSCOPY AND EDG EDG NORMAL DUODENUM ERYTHEMA IN THE ANTRUM CHRONIC ESOPHAGITIS COLONOSCOPY GRADE 1 INTERNAL HEMORRHOIDS OTHERWISE NORMAL 05/20/14 COLPOSCOPY WITH ROSEMARY 07/14/18 LAPAROSCOPY WITH FULGURATION OF ENDOMETROSIS AND DRAINAGE OF RIGHT OVARIAN CYST 08/14/18 CYST REMOVED FROM RIGHT OVARY & ENDO REMOVED & LEFT OVARY REMOVED FROM INTESTINE 08/2019 FAMILY HISTORY FATHER: ALIVE, HIGH BLOOD PRESSURE, DIVERTICULOSIS, ASTHMA MOTHER: ALIVE, MIGRAINE, HIGH CHOLESTEROL, HYPERTENSION,ASTHMA SIBLINGS: ALIVE PATERNAL GRAND FATHER: , UNKNOWN PATERNAL GRAND MOTHER: , LEUKEMIA. AT 60S MATERNAL GRAND FATHER: , [place] AT 70S MATERNAL GRAND MOTHER: ALIVE, HEART DISEASE, OVARIAN CANCER 1 BROTHER(S) , 1 SISTER(S) - HEALTHY. SOCIAL HISTORY GENERAL: TOBACCO USE ARE YOU A:NONSMOKER NEVER SMOKER HIV / HEP-C SCREENING HIV TEST OFFERED TO PATIENT:YES DATE OFFERED:09/14/2019 TEST ACCEPTED:NO HEP-C TEST OFFERED TO PATIENT:YES DATE OFFERED:09/14/2019 REASON:PATIENT DECLINED TEST ACCEPTED:NO REASON:PATIENT DECLINED BROCHURE PROVIDED TO PATIENTNO OTHERS AT HOME: BOYFRIEND AND HIS SON10- STEP- DAUGTHER 8 (EVERY OTHER WEEKEND).. EDUCATION LEVEL OF EDUCATION:NOT FINISHED COLLEGE DIET: REGULAR. LANGUAGE LANGUAGES SPOKEN:VIETNAMESE DOMESTIC VIOLENCE STATUS:PARTNERED NUMBER OF MONTHS/YEARS IN CURRENT RELATIONSHIP?USE NOTES SECTION DOES THE PATIENT DIVULGE THAT THE PARTNER HIT THEM?NO DOES THE PATIENT DIVULGE THAT THE PARTNER HITS THE CHILDREN IN THE HOUSEHOLD?NO DOES THE PATIENT CONSIDER THE PARTNER ABUSIVE?NO HAS THE PATIENT EVER BEEN IN A SITUATION INVOLVING DOMESTIC VIOLENCE?NO HAS THE PATIETN EVER BEEN INJURED, HOMEBOUND, OR HOSPITALIZED DUE TO AN ALTERCATION WITH SIGNIFICANT OTHER?NO DO YOU FEEL SAFE IN YOUR ENVIRONMENT?YES RECREATIONAL DRUG USE DRUG USE?YES HOW OFTEN AND HOW MUCH? MARIJUANA EXERCISE: NO REGULAR EXERCISE. LEARNING BARRIERS / SPECIAL NEEDS CHANGE FROM LAST VISIT?NO BARRIERS TO LEARNING?NO HEARING IMPAIRED?NO VISION IMPAIRED?YES COGNITIVELY IMPAIRED?NO WAS TOLD LEARNING DISABILITY IN SCHOOL- NEEDS EXTRA TIME WHEN READING, LEARNING, ETC. :CORRECTIVE LENSES READINESS TO LEARN?YES LEARNING PREFERENCES?NO LEARNING CAPABILITIES PRESENT?YES EMOTIONAL BARRIERS?NO SPECIAL DEVICES?NO DICTATING MACHINE TYPIST NEEDED?NO PAIN CLINIC PFS, CLERGY, PUBLIC HEALTH REFERRALS HAS THE PATIENT BEEN EDUCATED REGARDING HIS/HER PLAN OF CARE?YES HAS THE PATIENT BEEN EDUCATED REGARDING PAIN, THE RISK FOR PAIN, THE IMPORTANCE OF EFFECTIVE PAIN MANAGEMENT, AND THE PAIN ASSESSMENT PROCESS?YES LATEX QUESTIONNAIRE LATEX ALLERGY : HAVE YOU EVER DEVELOPED ANY TYPE OF REACTION AFTER HANDLING LATEX PRODUCTS SUCH RUBBER GLOVES, CONDOMS, DIAPHRAGMS, BALLOONS, SOCKS, OR UNDERWEAR?NO LATEX ALLERGY : HAVE YOU EVER DEVELOPED ANY TYPE OF REACTION DURING OR AFTER DENTAL APPOINTMENT, VAGINAL/RECTAL EXAMINATION, SURGICAL PROCEDURE, OR ANY OTHER EXPOSURE?NO DATE ASKED : 01/01/2019 LATEX RISK : HAVE YOU EVER HAD ANY DIFFICULTY BREATHING OR HIVES AFTER EATING OR HANDLING ANY FRUITS, OR VEGETABLES; SUCH KIWI, BANANAS, STONE FRUITS, OR CHESTNUTSNO LATEX RISK : DO YOU HAVE A PREVIOUS PERSONAL HISTORY OF MORE THAN NINE SURGERIES, SPINA BIFIDA, OR REPEATED CATHERIZATIONS? NO LATEX RISK : ARE YOU FREQUENTLY EXPOSED TO LATEX PRODUCTS IN YOUR OCCUPATION?NO CAFFEINE CAFFEINE USE?YES OCCASIONAL ADVANCE DIRECTIVE ADVANCE DIRECTIVE DISCUSSED WITH PATIENT:YES HCP - [facility] (PARENTS) [phone], ; [facility]OND ON HCP MUSLIM [id number] NONE NO QUAKER BELIEFS THAT WOULD IMPACT HEALTH CARE. MARITAL STATUS: .. ALCOHOL SCREENING DID YOU HAVE A DRINK CONTAINING ALCOHOL IN THE PAST YEAR?YES HOW OFTEN DID YOU HAVE SIX OR MORE DRINKS ON ONE OCCASION IN THE PAST YEAR?NEVER (0 POINTS) HOW MANY DRINKS DID YOU HAVE ON A TYPICAL DAY WHEN YOU WERE DRINKING IN THE PAST YEAR?1 OR 2 (0 POINTS) HOW OFTEN DID YOU HAVE A DRINK CONTAINING ALCOHOL IN THE PAST YEAR?MONTHLY OR LESS (1 POINT) POINTS1 INTERPRETATIONNEGATIVE OCCUPATION: [employer] IN [place]. SEXUAL HX HAD SEX IN THE LAST 12 MONTHS (VAGINAL, ORAL, OR ANAL)?YES WITHMEN ONLY USE PROTECTION?NO HAVE YOU EVER HAD AN STD?NO REVIEWD WITH PATIENT 12/03/19 BV. HOSPITALIZATION/MAJOR DIAGNOSTIC PROCEDURE [facility] 2012 REVIEW OF SYSTEMS REVIEWED BY: PROVIDER: . CONSTITUTIONAL: ANY CHANGE IN YOUR MEDICAL CONDITION? NO . CHILLS NO . FEVER NO . INFECTION: DO YOU HAVE NEW INFECTIONS? NO . DO YOU HAVE HISTORY OF MRSA? NO . MUSCULOSKELETAL: ANY NEW PATTERNS OF PAIN OR NUMBNESS? NO . GASTROENTEROLOGY: ANY NEW CHANGE IN BOWEL CONTROL? NO . GENITOURINARY: ANY NEW CHANGE IN BLADDER CONTROL? NO . IS THERE A CHANCE YOU COULD BE ? NO . HEMATOLOGY/LYMPH: DO YOU TAKE ANY BLOOD THINNERS? (FOR EXAMPLE- COUMADIN, PLAVIX, AGGRENOX, PLATEL, PRADAXA, OR XARELTO) NO . WHEN WAS YOUR LAST DOSE? DATE: TIME: . NEUROLOGY: HAVE YOU FALLEN IN THE PAST 12 MONTHS? NO . ANY NEW EXTREMITY NUMBNESS OR WEAKNESS? NO . CARDIOLOGY: DO YOU HAVE A PACEMAKER OR DEFIBRILLATOR? NO . RESPIRATORY: HAVE YOU BEEN SICK IN THE PAST WEEK? NO . FEVER NO . FLU LIKE SYMPTOMS? NO . COUGH NO . INTEGUMENTARY: DO YOU HAVE ANY RASHES OR OPEN SORES? NO . ALLERGIC/IMMUNO: ARE YOU ALLERGIC TO IV DYE? NO . ANY NEW ALLERGIES? NO . PSYCHIATRIC: DO YOU HAVE THOUGHTS OF HURTING YOURSELF OR SOMEONE ELSE? NO . ARE YOU ABUSED, NEGLECTED, OR IN AN UNSAFE ENVIRONMENT? NO . ENDOCRINOLOGY: ARE YOU DIABETIC? NO . OTHER: DO YOU NEED ANY PRESCRIPTIONS? NO . IF YES, PLEASE LIST: ____ . ANY NEW PROBLEMS WITH YOUR MEDICATIONS? NO . WHEN DID YOU LAST EAT? 12/03/19 0500 . WHEN DID YOU LAST DRINK? 12/03/19 0900 . WHAT DID YOU LAST DRINK? APPLE JUICE . NAME OF PERSON DRIVING YOU HOME? JUSTICE . DO YOU HAVE ANY OTHER QUESTIONS OR CONCERNS NO . VITAL SIGNS WT 203.0 LBS, HT 66 IN, BMI 32.76 INDEX, BP 122/69 MM HG, HR 98 /MIN, RR 18 /MIN, TEMP 99.0 F, OXYGEN SAT % 100%, NA INITIALS AW 1115, REVIEWED BY: BV. ASSESSMENTS CERVICAL DISC DISORDER WITH RADICULOPATHY, UNSPECIFIED CERVICAL REGION - M50.10 (PRIMARY) PROCEDURES PN CERVICAL EPIDURAL PRE PROCEDURE DIAGNOSIS CERVICAL DISC DISORDER WITH RADICULOPATHY POST PROCEDURE DIAGNOSIS CERVICAL DISC DISORDER WITH RADICULOPATHY PROCEDURE CERVICAL EPIDURAL STEROID INJECTION UNDER FLUOROSCOPIC GUIDANCE SURGEON DR. HANNAH MOSES REGULATORY AUDITOR NONE ANESTHESIA LOCAL PRE PROCEDURE NOTE THE PATIENT HAS A HISTORY OF CHRONIC CERVICAL PAIN. I EVALUATE THE PATIENT AND REVIEWED THE CHART. I WENT OVER THE RISKS, ALTERNATIVES, AND BENEFITS ASSOCIATED WITH THIS PROCEDURE. THE PATIENT WOULD LIKE TO PROCEED AND GIVE CONSENT TO PERFORMED THE PROCEDURE. THE PATIENT DENIES UNEXPLAINABLE WEIGHT LOSS, FEVER, CHILLS, OR NEW CHANGES IN URINARY OR BOWEL CONTROL DESCRIPTION OF PROCEDURE THE PATIENT WAS BROUGHT TO THE PROCEDURE ROOM AND PLACED IN THE PRONE POSITION. THE CERVICOTHORACIC AREA WAS CLEANED WITH BETADINE SOLUTION AND DRAPED ASEPTICALLY. THE PROCEDURE WAS DONE UNDER STERILE CONDITIONS. I CHECKED LATERALITY AND THE LEVEL WHERE THE PROCEDURE WAS GOING TO BE PERFORMED WITH THE PATIENT AND THE SUPPORTING STAFF AT THE MOMENT OF THE TIME OUT IN THE PROCEDURE ROOM. UNDER FLUOROSCOPIC GUIDANCE, THE TARGET WAS SELECTED AT THE INTERLAMINAR LEVEL OF C7-T1. LIDOCAINE WAS USED TO NUMB THE SKIN AND THE SUBCUTANEOUS TISSUE BELOW IT. EPIDURAL TUOHY NEEDLE 17-GAUGE WAS ADVANCED UNDER FLUOROSCOPIC GUIDANCE AND FOLLOWING PATIENT FEEDBACK UNTIL THE EPIDURAL SPACE WAS REACHED 6 CM DEEP INTO THE SKIN BY THE LOSS OF RESISTANCE TECHNIQUE. ISOVUE M DYE 30%, 0.25 ML, WAS INJECTED SHOWING ADEQUATE SPREAD OF THE DYE. THEN, A SOLUTION OF 3 ML OF NORMAL SALINE WITH DEPO-MEDROL 60 MG WAS INJECTED SLOWLY FOLLOWING PATIENT FEEDBACK. THERE WAS NO EVIDENCE OF BLOOD, PARESTHESIA OR CEREBROSPINAL FLUID DURING THE PROCEDURE. THE PATIENT WAS SENT TO THE RECOVERY ROOM. THE PATIENT WAS MOVING THE EXTREMITIES AND DOING WELL. THERE WAS NO COMPLICATION DURING THE PROCEDURE. FLUOROSCOPY TIME WAS 11 SECONDS POST PROCEDURE NOTE THE PATIENT WILL BE SEEN IN A FOLLOW UP IN THE NEXT FEW WEEKS. INSTRUCTIONS WERE GIVEN, QUESTIONS WERE ANSWERED, AND THE PATIENT EXPRESSED UNDERSTANDING AND AGREES WITH THE PLAN. I, ZOILA LOUIS, DOCUMENTED THE ABOVE INFORMATION ACTING A SCRIBE FOR DR. MOSES. I HAVE REVIEWED THE ABOVE DOCUMENT, WRITTEN BY ZOILA ZHAO AND I VERIFY THAT IT IS ACCURATE. DIAGNOSTIC IMAGING [facility] FLUORO GUIDE SPINE INJECTION (PAIN)[id number] PROCEDURE CODES 98651 CERVICAL/THORACIC W/ IMAGING 6045F RADXPS IN END [id number] PXD DISPOSITION & COMMUNICATION FOLLOW UP 3 WEEKS ELECTRONICALLY SIGNED BY HANNAH MOSES MD, MD ON 12/21/2019 AT 09:58 AM EST DISCLAIMER : THIS IS A VISIT SUMMARY EXTRACTED FROM THE [employer] CHART. IT IS NOT A COPY OF THE [employer] PROGRESS NOTE. MTDD
== END ==
LOC: M PAIN 11:45
PROVIDERS: ATTEND Anesthesiology
DX: M50.10 Cervical disc disorder with radiculopathy, unspecified cervical region (principal)
CPT/HCPCS: 62321; J1030; Q9967

== ENCOUNTER → 2019-12-30 | Outpatient (CLI) | payer MEDICARE ==
[~2019-12-30] MED LIST changes: -ISOVUE-M 300 61% 15ML VIAL (Q9967) As Ordered ONE; -LIDOCAINE 1% SDV INJ 30 ML VIAL As Ordered ONE; -NORCO, ANEXSIA 5/325MG TABLET (HYDROcodone/ACETAMINOPHEN) As Ordered ONE; -diazePAM 2 MG TAB As Ordered ONE; -methylPREDNISolone SUSP 40 MG/ML (DEPO-medrol) VIAL (J1030) As Ordered ONE
--- NOTE | 2020-01-19 02:49 | ECWPNPC ---
PATIENT NAME: GHAZALA FOX : 1985 GENDER: FEMALE VISIT DATE: 12/30/2019 DISCHARGE DATE: 12/30/19 1201 VISIT LOCKED DATE TIME: PHYSICIAN: BRITTANY RAMIREZ RESOURCE: BRITTANY RAMIREZ REASON FOR APPOINTMENT 1. POST CATE HISTORY OF PRESENT ILLNESS HISTORY OF PRESENT ILLNESS: HERE FOR POST PROCEDURE FOLLOW-UP. HAD CERVICAL EPIDURAL STEROID INJECTIONS. C7-T1 ON 12/03/2019. REPORTING MARKED IMPROVEMENT IN PAIN POST PROCEDURE, BUT FEELS PAIN IS GRADUALLY RETURNING TO BASELINE. RATING PAIN LEVEL AN 8/10 VAS. PAIN RADIATES INTO THE RIGHT ANTERIOR AND POSTERIOR SHOULDER REGION. DISCUSSED TREATMENT OPTIONS. PAIN THE PATIENT DESCRIBES THE PAIN... FALL RISK SCREENING: SCREENING :NO FALLS REPORTED IN THE LAST YEAR CURRENT MEDICATIONS TAKING LITHIUM CARBONATE 300 MG CAPSULE 1 CAPSULE AT BEDTIME ORALLY ONCE A DAY TAKING AMITRIPTYLINE HCL 50 MG TABLET 1 TABLET AT BEDTIME ORALLY ONCE A DAY TAKING GABAPENTIN 400 MG CAPSULE 1 CAPSULE ORALLY THREE TIMES DAILY TAKING ZONISAMIDE 100 MG CAPSULE 1 CAPSULE ORALLY TWICE A DAY TAKING CYMBALTA 30 MG CAPSULE DELAYED RELEASE PARTICLES 1 CAPSULE ORALLY ONCE A DAY WITH 60 MG =90 MG TOTAL PER DAY TAKING DULOXETINE HCL 60 MG CAPSULE DELAYED RELEASE PARTICLES 1 CAPSULE ORALLY DAILY TAKING DEPO-PROVERA 150 MG/ML SUSPENSION 1 ML INTRAMUSCULAR , NOTES: EVERY 3 MONTHS TAKING ABILIFY 5 MG TABLET 1 TABLET ORALLY ONCE A DAY TAKING CLOBETASOL PROPIONATE 0.05 % CREAM 1 APPLICATION EXTERNALLY ONCE A DAY TAKING ROPINIROLE HCL 1 MG TABLET TAKE 1 TABLET BY MOUTH EVERY DAY AT BEDTIME ORAL TAKING PREGABALIN 50 MG CAPSULE (SCHEDULE V DRUG) TAKE 1 CAPSULE BY MOUTH TWICE DAILY . DO NOT EXCEED 2 PER 24 HOURS ORAL TAKING D3 MAXIMUM STRENGTH 5000 UNIT CAPSULE TAKE 1 CAPSULE BY MOUTH ONCE DAILY NOT-TAKING ESOMEPRAZOLE MAGNESIUM 40 MG CAPSULE DELAYED RELEASE 1 CAPSULE ORALLY ONCE A DAY NOT-TAKING PREVACID 15 MG CAPSULE DELAYED RELEASE 1 CAPSULE ORALLY ONCE A DAY, NOTES: 20MG HAS NOT STARTED YET NOT-TAKING OXYCODONE-ACETAMINOPHEN 7.5-325 MG TABLET 1 TABLET NEEDED 2 DAILY NEEDED ORALLY , NOTES: STOPPED PER PT NOT-TAKING TEMOVATE 0.05 % OINTMENT 1 APPLICATION TO AFFECTED AREA TOPICALLY DAILY TO VAGINAL SKIN AREA PRN DISCOMFORT, NOTES: STOPPED PER PT MEDICATION LIST REVIEWED AND RECONCILED WITH THE PATIENT PAST MEDICAL HISTORY [facility]-2014 CT HEAD - 10/2013 BIPOLAR DEPRESSION/ANXIETY - 2012 [facility]M [facility]PERCHOLE[facility] - 2014 DJD LOWER BACK (X-RAY 08/2013) CERVICAL DISC DISEASE (NEGATIVE C -SPINE 07/2013) (- RA 10/2011, - ALVIN 10/2011, - LYME TITER 01/2011) IBS SEEN BY [facility] 2013. ENDOMETRIOSIS/OVARIAN CYST ASTHMA CERVICO-OCCIPITAL NEURALGIA DDD LUMBAR VITAMIN D DEFICIENCY JOINT STIFFNESS PARESTHESIA OF SKIN RIGHT ANTERIOR SHOULDER PAIN HIGH CALCIUM LEVELS FIBROMYALGIA ALLERGIES N.K.D.A. SURGICAL HISTORY COLONOSCOPY 2006 CYST REMOVAL-LEFT OVARY IN 2014 COLONOSCOPY AND EDG EDG NORMAL DUODENUM ERYTHEMA IN THE ANTRUM CHRONIC ESOPHAGITIS COLONOSCOPY GRADE 1 INTERNAL HEMORRHOIDS OTHERWISE NORMAL 05/20/14 COLPOSCOPY WITH ROSEMARY 07/14/18 LAPAROSCOPY WITH FULGURATION OF ENDOMETROSIS AND DRAINAGE OF RIGHT OVARIAN CYST 08/14/18 CYST REMOVED FROM RIGHT OVARY & ENDO REMOVED & LEFT OVARY REMOVED FROM INTESTINE 08/2019 FAMILY HISTORY FATHER: ALIVE, HIGH BLOOD PRESSURE, DIVERTICULOSIS, ASTHMA MOTHER: ALIVE, MIGRAINE, HIGH CHOLESTEROL, HYPERTENSION,ASTHMA SIBLINGS: ALIVE PATERNAL GRAND FATHER: , UNKNOWN PATERNAL GRAND MOTHER: , LEUKEMIA. AT 60S MATERNAL GRAND FATHER: , [place] AT 70S MATERNAL GRAND MOTHER: ALIVE, HEART DISEASE, OVARIAN CANCER 1 BROTHER(S) , 1 SISTER(S) - HEALTHY. SOCIAL HISTORY GENERAL: TOBACCO USE ARE YOU A:NONSMOKER NEVER SMOKER HIV / HEP-C SCREENING HIV TEST OFFERED TO PATIENT:YES DATE OFFERED:09/14/2019 TEST ACCEPTED:NO HEP-C TEST OFFERED TO PATIENT:YES DATE OFFERED:09/14/2019 REASON:PATIENT DECLINED TEST ACCEPTED:NO REASON:PATIENT DECLINED BROCHURE PROVIDED TO PATIENTNO OTHERS AT HOME: BOYFRIEND AND HIS SON10- STEP- DAUGTHER 8 (EVERY OTHER WEEKEND).. EDUCATION LEVEL OF EDUCATION:NOT FINISHED COLLEGE DIET: REGULAR. LANGUAGE LANGUAGES SPOKEN:MALAWIAN DOMESTIC VIOLENCE STATUS:PARTNERED NUMBER OF MONTHS/YEARS IN CURRENT RELATIONSHIP?USE NOTES SECTION DOES THE PATIENT DIVULGE THAT THE PARTNER HIT THEM?NO DOES THE PATIENT DIVULGE THAT THE PARTNER HITS THE CHILDREN IN THE HOUSEHOLD?NO DOES THE PATIENT CONSIDER THE PARTNER ABUSIVE?NO HAS THE PATIENT EVER BEEN IN A SITUATION INVOLVING DOMESTIC VIOLENCE?NO HAS THE PATIETN EVER BEEN INJURED, HOMEBOUND, OR HOSPITALIZED DUE TO AN ALTERCATION WITH SIGNIFICANT OTHER?NO DO YOU FEEL SAFE IN YOUR ENVIRONMENT?YES RECREATIONAL DRUG USE DRUG USE?YES HOW OFTEN AND HOW MUCH? MARIJUANA EXERCISE: NO REGULAR EXERCISE. LEARNING BARRIERS / SPECIAL NEEDS CHANGE FROM LAST VISIT?NO BARRIERS TO LEARNING?NO HEARING IMPAIRED?NO VISION IMPAIRED?YES COGNITIVELY IMPAIRED?NO WAS TOLD LEARNING DISABILITY IN SCHOOL- NEEDS EXTRA TIME WHEN READING, LEARNING, ETC. :CORRECTIVE LENSES READINESS TO LEARN?YES LEARNING PREFERENCES?NO LEARNING CAPABILITIES PRESENT?YES EMOTIONAL BARRIERS?NO SPECIAL DEVICES?NO ADMISSION NURSE NEEDED?NO PAIN CLINIC PFS, CLERGY, PUBLIC HEALTH REFERRALS HAS THE PATIENT BEEN EDUCATED REGARDING HIS/HER PLAN OF CARE?YES HAS THE PATIENT BEEN EDUCATED REGARDING PAIN, THE RISK FOR PAIN, THE IMPORTANCE OF EFFECTIVE PAIN MANAGEMENT, AND THE PAIN ASSESSMENT PROCESS?YES LATEX QUESTIONNAIRE LATEX ALLERGY : HAVE YOU EVER DEVELOPED ANY TYPE OF REACTION AFTER HANDLING LATEX PRODUCTS SUCH RUBBER GLOVES, CONDOMS, DIAPHRAGMS, BALLOONS, SOCKS, OR UNDERWEAR?NO LATEX ALLERGY : HAVE YOU EVER DEVELOPED ANY TYPE OF REACTION DURING OR AFTER DENTAL APPOINTMENT, VAGINAL/RECTAL EXAMINATION, SURGICAL PROCEDURE, OR ANY OTHER EXPOSURE?NO LATEX RISK : HAVE YOU EVER HAD ANY DIFFICULTY BREATHING OR HIVES AFTER EATING OR HANDLING ANY FRUITS, OR VEGETABLES; SUCH KIWI, BANANAS, STONE FRUITS, OR CHESTNUTSNO LATEX RISK : DO YOU HAVE A PREVIOUS PERSONAL HISTORY OF MORE THAN NINE SURGERIES, SPINA BIFIDA, OR REPEATED CATHERIZATIONS? NO LATEX RISK : ARE YOU FREQUENTLY EXPOSED TO LATEX PRODUCTS IN YOUR OCCUPATION?NO DATE ASKED : 01/01/2019 CAFFEINE CAFFEINE USE?YES OCCASIONAL ADVANCE DIRECTIVE ADVANCE DIRECTIVE DISCUSSED WITH PATIENT:YES HCP - [facility] (PARENTS) [phone], ; [facility] SECOND ON HCP RELIGIOUS [id number] NONE NO VOODOO BELIEFS THAT WOULD IMPACT HEALTH CARE. MARITAL STATUS: .. ALCOHOL SCREENING DID YOU HAVE A DRINK CONTAINING ALCOHOL IN THE PAST YEAR?YES HOW OFTEN DID YOU HAVE SIX OR MORE DRINKS ON ONE OCCASION IN THE PAST YEAR?NEVER (0 POINTS) HOW MANY DRINKS DID YOU HAVE ON A TYPICAL DAY WHEN YOU WERE DRINKING IN THE PAST YEAR?1 OR 2 (0 POINTS) HOW OFTEN DID YOU HAVE A DRINK CONTAINING ALCOHOL IN THE PAST YEAR?MONTHLY OR LESS (1 POINT) POINTS1 INTERPRETATIONNEGATIVE OCCUPATION: [employer] AT IN [place]. SEXUAL HX HAD SEX IN THE LAST 12 MONTHS (VAGINAL, ORAL, OR ANAL)?YES WITHMEN ONLY USE PROTECTION?NO HAVE YOU EVER HAD AN STD?NO HOSPITALIZATION/MAJOR DIAGNOSTIC PROCEDURE [facility] 2013 REVIEW OF SYSTEMS REVIEWED BY: PROVIDER: BRITTANY HUTCHINS . CONSTITUTIONAL: ANY CHANGE IN YOUR MEDICAL CONDITION? NO . CHILLS NO . FEVER NO . INFECTION: DO YOU HAVE NEW INFECTIONS? NO . DO YOU HAVE HISTORY OF MRSA? NO . MUSCULOSKELETAL: ANY NEW PATTERNS OF PAIN OR NUMBNESS? YES, STATES PAIN MOVING TO THE FRONT OF THE RIGHT SHOULDER AND MOVING UP HER HEAD AND INTO HER TEMPLES . GASTROENTEROLOGY: ANY NEW CHANGE IN BOWEL CONTROL? NO . GENITOURINARY: ANY NEW CHANGE IN BLADDER CONTROL? NO . IS THERE A CHANCE YOU COULD BE ? NO . HEMATOLOGY/LYMPH: DO YOU TAKE ANY BLOOD THINNERS? (FOR EXAMPLE- COUMADIN, PLAVIX, AGGRENOX, PLATEL, PRADAXA, OR XARELTO) NO . WHEN WAS YOUR LAST DOSE? DATE: TIME: . NEUROLOGY: HAVE YOU FALLEN IN THE PAST 12 MONTHS? NO . ANY NEW EXTREMITY NUMBNESS OR WEAKNESS? NO . CARDIOLOGY: DO YOU HAVE A PACEMAKER OR DEFIBRILLATOR? NO . RESPIRATORY: HAVE YOU BEEN SICK IN THE PAST WEEK? NO . FEVER NO . FLU LIKE SYMPTOMS? NO . COUGH NO . INTEGUMENTARY: DO YOU HAVE ANY RASHES OR OPEN SORES? NO . ALLERGIC/IMMUNO: ARE YOU ALLERGIC TO IV DYE? NO . ANY NEW ALLERGIES? NO . PSYCHIATRIC: DO YOU HAVE THOUGHTS OF HURTING YOURSELF OR SOMEONE ELSE? NO . ARE YOU ABUSED, NEGLECTED, OR IN AN UNSAFE ENVIRONMENT? NO . ENDOCRINOLOGY: ARE YOU DIABETIC? NO . OTHER: DO YOU NEED ANY PRESCRIPTIONS? NO . IF YES, PLEASE LIST: ____ . ANY NEW PROBLEMS WITH YOUR MEDICATIONS? NO . WHEN DID YOU LAST EAT? ____ . WHEN DID YOU LAST DRINK? ____ . WHAT DID YOU LAST DRINK? ____ . NAME OF PERSON DRIVING YOU HOME? ____ . DO YOU HAVE ANY OTHER QUESTIONS OR CONCERNS NO . VITAL SIGNS WT 209.8 LBS, HT 66 IN, BMI 33.86 INDEX, BP 122/79 MM HG, HR 114 /MIN, RR 18 /MIN, TEMP 99.2 F, OXYGEN SAT % 100%, SAFE IN ENV? (Y/N) YES, NA INITIALS AW 1134, REVIEWED BY: NAHUM. EXAMINATION GENERAL EXAMINATION: GENERALNO ACUTE DISTRESS, WELL NOURISHED AND HYDRATED. PSYCHAPPROPRIATE MOOD AND AFFECT . NECK:NO LYMPHADENOPATHY, SUPPLE, NO THYROMEGALLY. LUNGS: LUNG SOUNDS ARE CLEAR . HEART: HEART RATE REGULAR . MUSCULOSKELETAL:*, MUSCLE STRENGTH TESTING 5/5 BILATERAL UPPER EXTREMITIES. . CERVICAL:+ FOR PAIN WITH PALPATION OF CERVICAL SPINE. + FOR PAIN WITH PALPATION OF CERVICAL PARASPINALS. . NEUROLOGIC EXAM: ROJM LIMITED RIGHT UPPER EXTREMITY>LEFT WEAKNESS OVER RIGHT ARM. DIAGNOSTIC TESTS REVIEWED CERVICAL MRI. ASSESSMENTS CERVICAL DISC DISORDER WITH RADICULOPATHY, UNSPECIFIED CERVICAL REGION - M50.10 (PRIMARY) TREATMENT CERVICAL DISC DISORDER WITH RADICULOPATHY, UNSPECIFIED CERVICAL REGION NOTES: CONTINUE CONSERVATIVE CARE. PROCEDURE CODES [id number] ESTABILISHED PATIENT [facility] CHARGE DISPOSITION & COMMUNICATION FOLLOW UP 6 WEEKS F/U W BRITTANY-NECK PAIN/RIGHT ELECTRONICALLY SIGNED BY CUONG GONZALEZ ON 01/18/2020 AT 09:53 AM EDT DISCLAIMER : THIS IS A VISIT SUMMARY EXTRACTED FROM THE [employer] CHART. IT IS NOT A COPY OF THE [employer] PROGRESS NOTE. YURY
== END ==
LOC: M PAIN 10:45
PROVIDERS: ATTEND Nurse Practitioner Family
DX: M50.10 Cervical disc disorder with radiculopathy, unspecified cervical region (principal); F31.30 Bipolar disorder, current episode depressed, mild or moderate severity, unspecified; Z79.899 Other long term (current) drug therapy

== ENCOUNTER → 2020-02-17 | Outpatient (CLI) | payer OTHER ==
--- NOTE | 2020-02-20 01:15 | ECWPNPC ---
PATIENT NAME: GHAZALA FOX : 1985 GENDER: FEMALE VISIT DATE: 02/17/2020 DISCHARGE DATE: 02/17/20 1001 VISIT LOCKED DATE TIME: PHYSICIAN: BRITTANY RAMIREZ RESOURCE: BRITTANY RAMIREZ REASON FOR APPOINTMENT [phone]. [phone] WEEKS AFTER ORTHO VISIT HISTORY OF PRESENT ILLNESS HISTORY OF PRESENT ILLNESS: . PATIENT HAS AGREED TO TELEPHONE VISIT TODAY. SUFFERS FROM CHRONIC NECK PAIN WITH RADIATION INTO RIGHT UPPER ARM. WAS SEEN BY ORTHOPEDIC SURGEON AND SURGERY IS PENDING FOR HER NECK. RATING PAIN LEVEL AN 8/10 VAS. DESCRIBES PAIN INTERMITTENT AND STABBING. PAIN THE PATIENT DESCRIBES THE PAIN... FALL RISK SCREENING: SCREENING :NO FALLS REPORTED IN THE LAST YEAR CURRENT MEDICATIONS TAKING LITHIUM CARBONATE 300 MG CAPSULE 1 CAPSULE AT BEDTIME ORALLY ONCE A DAY TAKING AMITRIPTYLINE HCL 50 MG TABLET 1 TABLET AT BEDTIME ORALLY ONCE A DAY TAKING GABAPENTIN 400 MG CAPSULE 1 CAPSULE ORALLY TWICE DAILY TAKING ZONISAMIDE 100 MG CAPSULE 1 CAPSULE ORALLY TWICE A DAY TAKING CYMBALTA 30 MG CAPSULE DELAYED RELEASE PARTICLES 1 CAPSULE ORALLY ONCE A DAY WITH 60 MG =90 MG TOTAL PER DAY TAKING DULOXETINE HCL 60 MG CAPSULE DELAYED RELEASE PARTICLES 1 CAPSULE ORALLY DAILY TAKING DEPO-PROVERA 150 MG/ML SUSPENSION 1 ML INTRAMUSCULAR , NOTES: EVERY 3 MONTHS TAKING ABILIFY 5 MG TABLET 1 TABLET ORALLY ONCE A DAY TAKING CLOBETASOL PROPIONATE 0.05 % CREAM 1 APPLICATION EXTERNALLY ONCE A DAY TAKING ROPINIROLE HCL 1 MG TABLET TAKE 1 TABLET BY MOUTH EVERY DAY AT BEDTIME ORAL TAKING PREGABALIN 50 MG CAPSULE (SCHEDULE V DRUG) TAKE 1 CAPSULE BY MOUTH TWICE DAILY . DO NOT EXCEED 2 PER 24 HOURS ORAL TAKING D3 MAXIMUM STRENGTH 5000 UNIT CAPSULE 1 CAP ORALLY DAILY NOT-TAKING ESOMEPRAZOLE MAGNESIUM 20 MG CAPSULE DELAYED RELEASE 1 CAPSULE ORALLY ONCE A DAY NOT-TAKING OXYCODONE-ACETAMINOPHEN 7.5-325 MG TABLET 1 TABLET NEEDED 2 DAILY NEEDED ORALLY , NOTES: STOPPED PER PT NOT-TAKING TEMOVATE 0.05 % OINTMENT 1 APPLICATION TO AFFECTED AREA TOPICALLY DAILY TO VAGINAL SKIN AREA PRN DISCOMFORT, NOTES: STOPPED PER PT MEDICATION LIST REVIEWED AND RECONCILED WITH THE PATIENT PAST MEDICAL HISTORY [facility] NE[facility]-JANETH ARAUZ-2014 CT HEAD - 10/2013 BIPOLAR DEPRESSION/ANXIETY - 2012 ADM U - CURRENTLY C [facility] HYPERCHOLESTREMIA - 2014 DJD LOWER BACK (X-RAY 08/2013) CERVICAL DISC DISEASE (NEGATIVE C -SPINE 07/2013) (- RA 10/2011, - ALVIN 10/2011, - LYME TITER 01/2011) IBS SEEN BY [facility] IN 2013. ENDOMETRIOSIS/OVARIAN CYST ASTHMA CERVICO-OCCIPITAL NEURALGIA DDD LUMBAR VITAMIN D DEFICIENCY JOINT STIFFNESS PARESTHESIA OF SKIN RIGHT ANTERIOR SHOULDER PAIN HIGH CALCIUM LEVELS FIBROMYALGIA ALLERGIES N.K.D.A. SURGICAL HISTORY COLONOSCOPY 2006 CYST REMOVAL-LEFT OVARY IN 2014 COLONOSCOPY AND EDG EDG NORMAL DUODENUM ERYTHEMA IN THE ANTRUM CHRONIC ESOPHAGITIS COLONOSCOPY GRADE 1 INTERNAL HEMORRHOIDS OTHERWISE NORMAL 05/20/14 COLPOSCOPY WITH ROSEMARY 07/14/18 LAPAROSCOPY WITH FULGURATION OF ENDOMETROSIS AND DRAINAGE OF RIGHT OVARIAN CYST 08/14/18 CYST REMOVED FROM RIGHT OVARY & ENDO REMOVED & LEFT OVARY REMOVED FROM INTESTINE 08/2019 FAMILY HISTORY FATHER: ALIVE, HIGH BLOOD PRESSURE, DIVERTICULOSIS, ASTHMA MOTHER: ALIVE, MIGRAINE, HIGH CHOLESTEROL, HYPERTENSION,ASTHMA SIBLINGS: ALIVE PATERNAL GRAND FATHER: , UNKNOWN PATERNAL GRAND MOTHER: , LEUKEMIA. AT 60S MATERNAL GRAND FATHER: , IN AT 70S MATERNAL GRAND MOTHER: ALIVE, HEART DISEASE, OVARIAN CANCER 1 BROTHER(S) , 1 SISTER(S) - HEALTHY. SOCIAL HISTORY GENERAL: TOBACCO USE ARE YOU A:NONSMOKER NEVER SMOKER LATEX QUESTIONNAIRE LATEX ALLERGY : HAVE YOU EVER DEVELOPED ANY TYPE OF REACTION AFTER HANDLING LATEX PRODUCTS SUCH RUBBER GLOVES, CONDOMS, DIAPHRAGMS, BALLOONS, SOCKS, OR UNDERWEAR?NO LATEX ALLERGY : HAVE YOU EVER DEVELOPED ANY TYPE OF REACTION DURING OR AFTER DENTAL APPOINTMENT, VAGINAL/RECTAL EXAMINATION, SURGICAL PROCEDURE, OR ANY OTHER EXPOSURE?NO DATE ASKED : 01/01/2019 LATEX RISK : HAVE YOU EVER HAD ANY DIFFICULTY BREATHING OR HIVES AFTER EATING OR HANDLING ANY FRUITS, OR VEGETABLES; SUCH KIWI, BANANAS, STONE FRUITS, OR CHESTNUTSNO LATEX RISK : DO YOU HAVE A PREVIOUS PERSONAL HISTORY OF MORE THAN NINE SURGERIES, SPINA BIFIDA, OR REPEATED CATHERIZATIONS? NO LATEX RISK : ARE YOU FREQUENTLY EXPOSED TO LATEX PRODUCTS IN YOUR OCCUPATION?NO ALCOHOL SCREENING DID YOU HAVE A DRINK CONTAINING ALCOHOL IN THE PAST YEAR?YES HOW OFTEN DID YOU HAVE SIX OR MORE DRINKS ON ONE OCCASION IN THE PAST YEAR?NEVER (0 POINTS) HOW MANY DRINKS DID YOU HAVE ON A TYPICAL DAY WHEN YOU WERE DRINKING IN THE PAST YEAR?1 OR 2 (0 POINTS) HOW OFTEN DID YOU HAVE A DRINK CONTAINING ALCOHOL IN THE PAST YEAR?MONTHLY OR LESS (1 POINT) POINTS1 INTERPRETATIONNEGATIVE RECREATIONAL DRUG USE DRUG USE?YES HOW OFTEN AND HOW MUCH? MARIJUANA CAFFEINE CAFFEINE USE?YES OCCASIONAL SEXUAL HX HAD SEX IN THE LAST 12 MONTHS (VAGINAL, ORAL, OR ANAL)?YES WITHMEN ONLY USE PROTECTION?NO HAVE YOU EVER HAD AN STD?NO HIV / HEP-C SCREENING HIV TEST OFFERED TO PATIENT:YES DATE OFFERED:09/14/2019 TEST ACCEPTED:NO HEP-C TEST OFFERED TO PATIENT:YES DATE OFFERED:09/14/2019 REASON:PATIENT DECLINED TEST ACCEPTED:NO REASON:PATIENT DECLINED BROCHURE PROVIDED TO PATIENTNO RESTORATIONIST [id number] NONE NO VOODOO BELIEFS THAT WOULD IMPACT HEALTH CARE. LANGUAGE LANGUAGES SPOKEN:SLOVENIAN EDUCATION LEVEL OF EDUCATION:NOT FINISHED COLLEGE LEARNING BARRIERS / SPECIAL NEEDS CHANGE FROM LAST VISIT?NO BARRIERS TO LEARNING?NO HEARING IMPAIRED?NO VISION IMPAIRED?YES COGNITIVELY IMPAIRED?NO WAS TOLD LEARNING DISABILITY IN SCHOOL- NEEDS EXTRA TIME WHEN READING, LEARNING, ETC. :CORRECTIVE LENSES READINESS TO LEARN?YES LEARNING PREFERENCES?NO LEARNING CAPABILITIES PRESENT?YES EMOTIONAL BARRIERS?NO SPECIAL DEVICES?NO MECHANICS SUPERVISOR NEEDED?NO DOMESTIC VIOLENCE STATUS:PARTNERED NUMBER OF MONTHS/YEARS IN CURRENT RELATIONSHIP?USE NOTES SECTION DOES THE PATIENT DIVULGE THAT THE PARTNER HIT THEM?NO DOES THE PATIENT DIVULGE THAT THE PARTNER HITS THE CHILDREN IN THE HOUSEHOLD?NO DOES THE PATIENT CONSIDER THE PARTNER ABUSIVE?NO HAS THE PATIENT EVER BEEN IN A SITUATION INVOLVING DOMESTIC VIOLENCE?NO HAS THE PATIETN EVER BEEN INJURED, HOMEBOUND, OR HOSPITALIZED DUE TO AN ALTERCATION WITH SIGNIFICANT OTHER?NO DO YOU FEEL SAFE IN YOUR ENVIRONMENT?YES 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 DIET: REGULAR. EXERCISE: NO REGULAR EXERCISE. MARITAL STATUS: .. OTHERS AT HOME: BOYFRIEND AND HIS SON10- STEP- DAUGTHER 8 (EVERY OTHER WEEKEND).. NEW PATIENT PAIN DIARY PATIENT DESCRIBES PAIN :ACHING, BURNING, HAVE IT ALL THE TIME, IT COMES AND GOES, TENDER 02/17/2020 FROM 0-10, WHAT LEVEL IS YOUR PAIN TODAY?8 PRECIPITATING FACTORS POSITIONING, ACTIVITY ALLEVIATING FACTORS ROLLED TOWEL UNDER NECK HELPS WHEN SLEEPING PAIN CLINIC PFS, CLERGY, PUBLIC HEALTH REFERRALS HAS THE PATIENT BEEN EDUCATED REGARDING HIS/HER PLAN OF CARE?YES HAS THE PATIENT BEEN EDUCATED REGARDING PAIN, THE RISK FOR PAIN, THE IMPORTANCE OF EFFECTIVE PAIN MANAGEMENT, AND THE PAIN ASSESSMENT PROCESS?YES ADVANCE DIRECTIVE ADVANCE DIRECTIVE DISCUSSED WITH PATIENT:YES HCP - [facility] (PARENTS) [phone], ; [facility] SECOND ON HCP HOSPITALIZATION/MAJOR DIAGNOSTIC PROCEDURE [facility] 2012 REVIEW OF SYSTEMS REVIEWED BY: PROVIDER: BRITTANY HUTCHINS . CONSTITUTIONAL: ANY CHANGE IN YOUR MEDICAL CONDITION? NO . CHILLS NO . FEVER NO . INFECTION: DO YOU HAVE NEW INFECTIONS? NO . DO YOU HAVE HISTORY OF MRSA? NO . MUSCULOSKELETAL: ANY NEW PATTERNS OF PAIN OR NUMBNESS? PAIN LEVEL COMES AND GOES, BUT PAIN IS THERE DAILY. PT REPORTS OCCASIONAL NUMBNESS IN BOTH HANDS. . GASTROENTEROLOGY: ANY NEW CHANGE IN BOWEL CONTROL? NO . GENITOURINARY: ANY NEW CHANGE IN BLADDER CONTROL? NO . IS THERE A CHANCE YOU COULD BE ? NO . HEMATOLOGY/LYMPH: DO YOU TAKE ANY BLOOD THINNERS? (FOR EXAMPLE- COUMADIN, PLAVIX, AGGRENOX, PLATEL, PRADAXA, OR XARELTO) NO . WHEN WAS YOUR LAST DOSE? DATE: TIME: . NEUROLOGY: HAVE YOU FALLEN IN THE PAST 12 MONTHS? NO . ANY NEW EXTREMITY NUMBNESS OR WEAKNESS? NO . CARDIOLOGY: DO YOU HAVE A PACEMAKER OR DEFIBRILLATOR? NO . RESPIRATORY: HAVE YOU BEEN SICK IN THE PAST WEEK? NO . FEVER NO . FLU LIKE SYMPTOMS? NO . COUGH NO . INTEGUMENTARY: DO YOU HAVE ANY RASHES OR OPEN SORES? NO . ALLERGIC/IMMUNO: ARE YOU ALLERGIC TO IV DYE? NO . ANY NEW ALLERGIES? NO . PSYCHIATRIC: DO YOU HAVE THOUGHTS OF HURTING YOURSELF OR SOMEONE ELSE? NO . ARE YOU ABUSED, NEGLECTED, OR IN AN UNSAFE ENVIRONMENT? NO . ENDOCRINOLOGY: ARE YOU DIABETIC? NO . OTHER: DO YOU NEED ANY PRESCRIPTIONS? NO . IF YES, PLEASE LIST: ____ . ANY NEW PROBLEMS WITH YOUR MEDICATIONS? NO . WHEN DID YOU LAST EAT? ____ . WHEN DID YOU LAST DRINK? ____ . WHAT DID YOU LAST DRINK? ____ . NAME OF PERSON DRIVING YOU HOME? ____ . DO YOU HAVE ANY OTHER QUESTIONS OR CONCERNS NO . ASSESSMENTS CERVICAL DISC DISORDER WITH RADICULOPATHY, UNSPECIFIED CERVICAL REGION - M50.10 (PRIMARY) TREATMENT CERVICAL DISC DISORDER WITH RADICULOPATHY, UNSPECIFIED CERVICAL REGION NOTES: CURRENTLY PATIENT IS WAITING TO HAVE CERVICAL SURGERY. WILL DISCHARGE TO CARE OF ORTHOPEDIC SURGEON AND PRIMARY CARE. SHE IS AWARE THAT SURGEON COULD REFER HER HERE IF NECESSARY POST SURGERY . TOTAL TIME SPENT DURING TELEPHONE VISIT WAS 11 MINUTES. OTHERS NOTES: NO VITAL SIGNS TAKEN, THIS IS A VIRTUAL/TELEPHONE VISIT. 02/17/2020 LAS. DISPOSITION & COMMUNICATION FOLLOW UP DISCHARGE TO ORTHOPEDIC SURGEON (REASON: NECK PAIN) ELECTRONICALLY SIGNED BY CUONG GONZALEZ ON 02/19/2020 AT 02:04 PM EDT DISCLAIMER : THIS IS A VISIT SUMMARY EXTRACTED FROM THE [employer] CHART. IT IS NOT A COPY OF THE [employer] PROGRESS NOTE. YURY
== END ==
LOC: M PAIN 10:45
PROVIDERS: ATTEND Nurse Practitioner Family
DX: M50.10 Cervical disc disorder with radiculopathy, unspecified cervical region (principal); Z79.899 Other long term (current) drug therapy

== ENCOUNTER → 2020-03-04 | Outpatient (CLI) | payer OTHER ==
[~2020-03-04] MED LIST changes: +AIMO70IN2 SC; +AMIT50TA PO; +BUPR300T92 PO; +D-50TAB PO; +HYDR-3363 PO; +LITH300T2 PO; +MODA200T15 PO; +PERC5TAB12 PO; +PREG75CA2 PO; +ROPI1TAB3 PO; +TRAM50TA2 PO; +VENTAER INH; +VITAD1000T PO
== END ==
LOC: M LABSMTC 10:45
PROVIDERS: ATTEND Anesthesiology
DX: Z01.818 Encounter for other preprocedural examination (principal); Z11.59 Encounter for screening for other viral diseases
CPT/HCPCS: C8903; U0003

== ENCOUNTER 2020-03-07 06:06 | Inpatient (IN) | payer OTHER ==
--- NOTE | 2020-03-03 16:13 | HPE ---
DATE OF SCHEDULED ADMISSION: 03/07/2020 ATTENDING PHYSICIAN: Dr. Sam Silva CHIEF COMPLAINT: Neck pain with right upper extremity radiculopathy. HISTORY: The patient is a 34-year-old female with persistent neck pain and right upper extremity radiculopathy. She has failed multiple conservative treatments to include injections, therapy and medications. Symptoms have been progressive over a number of years. She consented for an elective anterior cervical decompression and fusion procedure at C5-6 and C6-[address] Silva for her continued symptoms. CURRENT MEDICATIONS: - amitriptyline 25 mg daily - vitamin D3 5000 units daily - aripiprazole 5 mg daily - Cymbalta 30 mg daily - lithium 300 mg daily - Wellbutrin XL 300 mg daily - Lyrica 50 mg twice daily - ropinirole 1 mg daily - zonisamide 100 mg twice daily - gabapentin 400 mg daily ALLERGIES TO MEDICATIONS: There are no known drug allergies. CHRONIC MEDICAL CONDITIONS: Fibromyalgia. Gastroesophageal reflux disease. Depression. Restless leg syndrome. Neck pain with right upper extremity radiculopathy. PAST SURGICAL HISTORY: Ovarian cystectomy, Endometrial biopsy. SOCIAL HISTORY: The patient does not use tobacco and rarely uses alcohol. She does live at home with her boyfriend and his son. REVIEW OF SYSTEMS: The patient denies fevers, chills, nausea, vomiting or diarrhea. She denies chest pain, shortness of breath, lightheadedness, dizziness or headaches. She denies abdominal pain. She denies any recent upper respiratory or urinary tract infection symptoms. The patient continues to have neck pain with right upper extremity radicular symptoms. PHYSICAL EXAMINATION: General: Well-nourished, well-developed female in no apparent distress. She is alert, oriented and cooperative. Mood and affect are appropriate. Vital signs: Blood pressure 118/78, respirations 12, heart rate 46, height 65.5 inches, weight 209 pounds, temperature 99 degrees. Neck: Supple without lymphadenopathy. Heart: Regular rate and rhythm. Lungs: Clear to auscultation bilaterally. Abdomen is soft and nontender to palpation. Bowel sounds are present. Musculoskeletal: There is some tenderness along the posterior right side of the cervical spine. No tenderness in the front of the cervical spine. Voice is clear. Spurling's test was positive. She does not seem to have a focal motor deficit. Deep tendon reflexes at the biceps, triceps and brachial radialis is 4+ but inverted on the right side. Hanson's was absent. 3+ at both knees and ankles. Two beats of clonus. Babinski's were downgoing bilaterally. She did not have a wide-based gait, it was non-antalgic. She was able to tandem walk. She does appreciate light touch in the upper and lower extremities. IMAGING: MRI of the cervical spine reflects progression of C5-6 and C6-7 degenerative changes, particularly at C6-7 where there is a 7.5 mm AP diameter of cord. There is a large disc herniation with only mild findings at C4-5. IMPRESSION: Cervical spinal stenosis at multiple levels with neck discomfort and right upper extremity radiculopathy that has been progressive over more than 3 years. PLAN: The patient consented for an elective anterior cervical decompression and fusion procedure at C5-6 and C6-[address] Silva for her continued symptoms. The patient understands that she will be nothing by mouth after midnight the night before surgery. She will also avoid any antiinflammatories between now and her surgical date due to increased risk of bleeding. YURY
[2020-03-07] VITALS (7 sets, daily range): BP systolic 120–144; BP diastolic 78–94
[~2020-03-07] VITALS: Ht 167.6 cm; Wt 95.3 kg
[~2020-03-07 06:06] MED LIST changes: -AIMO70IN2 SC; -AMIT50TA PO; -BUPR300T92 PO; +CelecoXIB (CeleBREX) 100 MG CAP PO ONE; -D-50TAB PO; +GABAPENTIN 300 MG CAP PO ONE; -LITH300T2 PO; +LR 1,000 ML IV ONE; -MODA200T15 PO; -PERC5TAB12 PO; +PERCOCET 5MG/325MG TAB PO ONE; -PREG75CA2 PO; -ROPI1TAB3 PO; +ceFAZolin SOD 2 GM in IV 1 EA IV ONE
[2020-03-07] MEDS ORDERED: BACITRACIN PWD 50,000 UNITS VIAL As Ordered ONE ×2 (07:07→07:10)
[2020-03-07] MEDS ORDERED: THROMBIN SOLN 20,000 UNITS KIT As Ordered ONE (07:07)
[2020-03-07] MEDS ORDERED: methylPREDNISolone 500 MG VIAL (J2930) As Ordered ONE (07:07)
[2020-03-07] MEDS ORDERED: LIDOCAINE W/EPINEPHRINE 1% 20ML VIAL As Ordered ONE (07:07)
[2020-03-07] MEDS ORDERED: propofoL 200 MG/20 ML VIAL As Ordered ONE ×2 (08:16→10:58)
[2020-03-07] MEDS ORDERED: ACETAMINOPHEN 1000MG 100ML IV BTL (OFIRMEV) (J0131 PER 10MG) As Ordered ONE (08:16)
[2020-03-07] MEDS ORDERED: ROCURONIUM BROMIDE 50 MG/5 ML VIAL As Ordered ONE (08:16)
[2020-03-07] MEDS ORDERED: ONDANSETRON 4MG/2ML VIAL As Ordered ONE (08:16)
[2020-03-07] MEDS ORDERED: LIDOCAINE 2% 100MG/5ML SDV (FOR ANES.) As Ordered ONE (08:16)
[2020-03-07] MEDS ORDERED: dexameTHASONE 4 MG/ML 1ML VIAL (J1100 PER 1MG) As Ordered ONE (08:16)
[2020-03-07] MEDS ORDERED: fentaNYL 250 MCG/5 ML INJECTION (J3010) As Ordered ONE (08:16)
[2020-03-07] MEDS ORDERED: MIDAZOLAM INJ 2MG/2ML VIAL (J2250 PER 1MG) As Ordered ONE (08:16)
[2020-03-07] MEDS ORDERED: HYDROmorphone HCL 2 MG/ML 1ML VIAL (J1170) As Ordered ONE (08:27)
[2020-03-07] MEDS ORDERED: SUGAMMADEX SODIUM 500 MG/5 ML VIAL (BRIDION) As Ordered ONE (08:30)
[2020-03-07] MEDS ORDERED: PHENYLephrine HCL 500 MCG/5 ML (100MCG/ML) SYRINGE (J2370) As Ordered ONE (08:32)
[2020-03-07] MEDS ORDERED: oxyCODONE 5MG TAB PO PRN (11:30)
[2020-03-07] MEDS ORDERED: ONDANSETRON 4MG/2ML VIAL IV PRN (11:30)
[2020-03-07] MEDS ORDERED: HYDROMORPHONE HCL 0.5 MG/ 0.5 ML SYRINGE (J1170 PER 1) IV PRN ×2 (11:30→11:45)
[2020-03-07] MEDS ORDERED: LR 1,000 ML IV SCH ×2 (11:30)
[2020-03-07] MEDS ORDERED: PERCOCET 5MG/325MG TAB PO PRN (11:30)
[2020-03-07] MEDS ORDERED: METOPROLOL 5 MG/5 ML VIAL As Ordered ONE (11:34)
[2020-03-07] MEDS: fentaNYL 100 MCG/2 ML INJECTION (J3010) IV PRN ×4 (11:45→12:02)
[2020-03-07] MEDS: METOPROLOL 5 MG/5 ML VIAL IV SCH ×5 (12:45→13:05)
[2020-03-07] MEDS ORDERED: ALPRAZolam 0.5 MG TAB PO ONE (13:30)
--- NOTE | 2020-03-07 13:43 | REP ---
PORTABLE CERVICAL SPINE VIEWS: THREE VIEWS INTRA-OP HISTORY: Right C5-6 and C6-7 anterior cervical discectomy. COMPARISON: Cervical spine radiographs, August 13, 2013. FINDINGS: A sequence of three intraoperative portable cross-table lateral views of the cervical spine are presented. The initial view is time stamped 9:15 a.m. This demonstrates an intraoperative probe at C6-7 disc level anteriorly. Oropharyngeal and orotracheal tubes are noted. Mild disc space narrowing is seen at C5-6. A second cross-table lateral view is time stamped 10:46 a.m. This demonstrates ventral discectomy and fusion plating in place across C6 through C7. Disc grafts are noted in place. The third film is time stamped 11 a.m.. This demonstrates a ventral discectomy and fusion plate to better advantage from C5 through the through C7. Electronically Signed by Law Flores MD 03/07/2020 04:56 P
[2020-03-07] MEDS ORDERED: AMIT50TA PO (14:24)
[2020-03-07] MEDS ORDERED: ROPI1TAB3 PO (14:24)
[2020-03-07] MEDS ORDERED: BUPR300T92 PO (14:24)
[2020-03-07] MEDS ORDERED: PREG75CA2 PO (14:24)
[2020-03-07] MEDS ORDERED: D-50TAB PO (14:24)
[2020-03-07] MEDS ORDERED: AIMO70IN2 SC (14:24)
[2020-03-07] MEDS ORDERED: MODA200T15 PO (14:24)
[2020-03-07] MEDS ORDERED: LITH300T2 PO (14:24)
[2020-03-07] MEDS ORDERED: ALBUTEROL 90 MCG/ACT 8GM HFA INHALER INH PRN (14:45)
[2020-03-07] MEDS: PERCOCET 5MG/325MG TAB PO PRN ×2 (17:02→21:34)
[2020-03-07] MEDS ORDERED: ceFAZolin SOD 2 GM in IV 1 EA IV ONE (17:45)
[2020-03-07] MEDS: PREGABALIN 50 MG CAP (LYRICA) PO SCH (20:26)
[2020-03-07] MEDS ORDERED: AMITRIPTYLINE 25 MG TAB PO SCH (21:00)
[2020-03-07] MEDS ORDERED: DULoxetine 30 MG CAP (CYMBALTA) PO SCH (21:00)
[2020-03-07] MEDS ORDERED: LITHIUM CARBONATE 300 MG CAP PO SCH (21:00)
[2020-03-08] MEDS: PERCOCET 5MG/325MG TAB PO PRN ×2 (01:23→08:39)
[2020-03-08 02:00] VITALS: BP 109/66
[2020-03-08 06:00] VITALS: BP 108/64
[2020-03-08] MEDS ORDERED: PERC5TAB12 PO (07:54)
[2020-03-08] MEDS: PREGABALIN 50 MG CAP (LYRICA) PO SCH (08:39)
[2020-03-08] MEDS ORDERED: METAMUCIL (PSYLLIUM) PACKET PO SCH (09:00)
[2020-03-08] MEDS ORDERED: buPROPion **XL** TABLET 150MG (WELLBUTRIN XL) PO SCH (09:00)
--- NOTE | 2020-03-09 11:03 | RO ---
DATE OF PROCEDURE: 03/07/2020 PREOPERATIVE DIAGNOSIS: Cervical spinal stenosis with cervical radiculopathy with degenerative spondylosis at C5-C6 and C6-C7. POSTOPERATIVE DIAGNOSIS: Cervical spinal stenosis with cervical radiculopathy with degenerative spondylosis at C5-C6 and C6-C7. PROCEDURE PERFORMED: Anterior cervical decompression and fusion procedure at C5-6, anterior cervical decompression and fusion procedure at C6-7, structural allograft for spine surgery C5-C6, C6-C7, application of anterior instrumentation for spine surgery C5-C6-C7. SURGEON: Sam Silva MD PHARMACOGENETICIST: RAÚL Fairbanks ANESTHESIA: General. Estimated blood loss less than 40 mL. No complications. Components used include a [place] plate, 14 mm screws, 32 mm plate, VG2 graft size 6 x 8 at C6-C7, size 5 x 7 at C5-C6. INDICATIONS: Radicular discomfort down the left upper extremity, MRI reflects spinal cord deformity at C6-C7 and cervical spondylosis of C5-C6 and C6-C7. The patient has elected for operative intervention. Consent reviewed in detail including a christian discussion of the pathology involved, the procedure proposed, alternatives including doing nothing and risks including, but not limited to, pain, failure, infection, bleeding, blood loss, incomplete relief of symptoms, need for additional surgery, and other issues. The patient agrees to proceed. OPERATIVE COURSE: Identified in holding area. Site side verified. Brought to the operating room. Anesthesia was administered. She was then positioned in the usual fashion for exposure of the cervical spine. Head halter traction applied. Shoulders taped to the side. Once I and the primary care physician were comfortable with the patient's positioning she was then sterilely prepped, draped in the usual fashion. Next, the line of the incision was outlined with a marking pen, infiltrated with 1% lidocaine with epinephrine. I utilized 3.5 loupe magnification. I stood on the patient's right side. Mr. Gupta stood on the left side. I made the incision with a #10 blade knife developed down through skin and subcuticular tissues to the platysma. Platysma was elevated and divided using the bipolar cautery as well as tenotomy scissors. A large vein was appreciated just deep to the platysma. This was further exposed, ligated and divided. Next, the sternocleidomastoid as well as the omohyoid were identified. The omohyoid was exposed and divided using bipolar cautery and tenotomy scissors. Carotid sheath was identified and protected. Dissection continued medial to the carotid sheath down to the prevertebral fascia. The prevertebral fascia was then elevated using tenotomy scissors and a peanut. Mr. Gupta utilized the S retractors to help retract. We placed a Bayonet spinal needle at the C6-C7 disc spaced and a cross-table lateral x-ray was taken to verify our level. Dissection continued exposing C5-C6. The longus colli was elevated at its medial border. Distractions pins were placed across C6-C7. Shadow-Line retractor was placed. The anulus was opened with an #11 blade. Disc material was removed. Cartilaginous end plates were cleared with curettes. Oval bur was utilized to square the end plates and remove the uncinate processes. Next, posterior longitudinal ligament was identified, elevated with curettes and removed using #1 and #2 Kerrison exposing the thecal sac. Impression on the left side was appreciated. Next, irrigation was accomplished. Rasps were utilized at the C6-C7 level. 6 x 8 was the predicted size with the sound and we obtained 6 x 8 structural graft. We again irrigated. Placed the graft, tamped it into place. Removed distractions pins at C7, plugged the distraction pin hole with wax. Next, moved the retractors to C5-C6. Moved the distraction pin to C5. Distracted across C5-C6. Opened annulus in a similar fashion. Removed disc plate and removed cartilaginous endplate in a similar fashion. Utilized oval bur to further square the end plates. Elevated posterior longitudinal ligament (PLL) using curettes and #1 Kerrison and #2 Kerrison. Inspected. No active bleeding. Irrigation was accomplished. Rasps were utilized. 5 x 7 graft was selected for that level. Next, the graft was implanted, tamped it into place. Next, distraction pins were removed. Holes plugged with wax. Mr. Gupta helped position with S retractors while I utilized the oval bur to further prepare the anterior vertebral column to receive the plate. Selected a 32 mm plate, which was drilled in screwed in the usual fashion with 14 mm screws. Locking devices all engaged. Next, cross-table lateral x-ray was taken to verify appropriate placement. Irrigation was accomplished. No active bleeding was accomplished. We also irrigated with . Next, with retractors removed, we closed the platysma and dermal tissues. Dermabond was utilized on skin. The patient was placed in [place] cervical collar as he was extubated. Head halter retraction was removed prior to plate placement. Next, the patient was able to be extubated and moved to the recovery room in good condition. Voice was appreciated to be clear in the recovery room and she voiced improvement.
== END 2020-03-08 09:30 | disposition home or self-care (01) | DRG 321 ==
LOC: M OR 06:06 → M MS5PR 13:35
PROVIDERS: ADMIT Orthopaedic Surgery; ATTEND Orthopaedic Surgery
PROC: 0RU Upper Joints, Supplement (ICD-10-PCS; 2020-03-07)
PROC: 0RN Upper Joints, Release (ICD-10-PCS; 2020-03-07)
PROC: 0RG20A0 Fusion of 2 or more Cervical Vertebral Joints with Interbody Fusion Device, Anterior Approach, Anterior Column, Open Approach (ICD-10-PCS; principal; 2020-03-07 07:30)
DX: M50.322 Other cervical disc degeneration at C5-C6 level (principal); F32.9 Major depressive disorder, single episode, unspecified; M79.7 Fibromyalgia; K21.9 Gastro-esophageal reflux disease without esophagitis; G25.81 Restless legs syndrome; Z79.899 Other long term (current) drug therapy; M50.323 Other cervical disc degeneration at C6-C7 level

== ENCOUNTER → 2020-10-19 | Outpatient (REF) | payer OTHER ==
[~2020-10-19] MED LIST changes: +AIMO70IN2 SC; +AMIT50TA PO; +BUPR300T92 PO; -CelecoXIB (CeleBREX) 100 MG CAP PO ONE; +D-50TAB PO; +D31000TA2 PO; -GABAPENTIN 300 MG CAP PO ONE; +LITH300T2 PO; -LR 1,000 ML IV ONE; +MODA200T15 PO; +PERC5TAB12 PO; -PERCOCET 5MG/325MG TAB PO ONE; +PREG75CA2 PO; +ROPI1TAB3 PO; -VITAD1000T PO; -ceFAZolin SOD 2 GM in IV 1 EA IV ONE
[2020-10-19 11:07] LABS: HEMATOCRIT 45.2 % (36.0-47.0); HEMOGLOBIN 14.1 g/dl (12.0-15.5); MEAN CORPUSCULAR HEMOGLOBIN 27.8 pg (27.0-33.0); MEAN CORPUSCULAR HGB CONC 31.2 g/dl (32.0-36.5); MEAN CORPUSCULAR VOLUME 89.2 fl (80.0-96.0); PLATELET COUNT, AUTOMATED 281 10^3/uL (150-450); RED BLOOD COUNT 5.07 10^6/uL (4.00-5.40); WHITE BLOOD COUNT 9.4 10^3/uL (4.0-10.0)
[2020-10-19 12:37] LABS: ALBUMIN 3.6 GM/DL (3.2-5.2); BILIRUBIN,TOTAL 0.2 MG/DL (0.2-1.0); CALCIUM LEVEL 8.7 MG/DL (8.5-10.1); CREATININE FOR GFR 1.14 MG/DL (0.55-1.30); GLOMERULAR FILTRATION RATE 58.4 (>60); LITHIUM LEVEL 0.35 MEQ/L (0.60-1.20); PERCENT SATURATION 20.2 % (13.2-45.0); POTASSIUM SERUM 4.4 MEQ/L (3.5-5.1); THYROID STIMULATING HORMONE 2.48 uIU/ML (0.358-3.740); VALPROIC ACID (DEPAKOTE) 116.2 UG/ML (50.0-100.0)
== END ==
LOC: M SFHCPLAZ 08:36
PROVIDERS: ATTEND Nurse Practitioner Adult Health
DX: R53.83 Other fatigue (principal); F31.30 Bipolar disorder, current episode depressed, mild or moderate severity, unspecified

== ENCOUNTER → 2020-11-24 | Outpatient (CLI) | payer OTHER ==
[~2020-11-24] MED LIST changes: -AMIT25TA PO; +AMIT25TA17 PO
[2020-11-24 16:56] LABS: CPK CREATINE PHOSPHOKINASE 125 U/L (26-192); FREE T4 0.86 NG/DL (0.76-1.46); RHEUMATOID FACTOR QUANT < 10.0 IU/ML (<15.0); TOTAL PROTEIN 7.3 GM/DL (6.4-8.2)
[2020-11-24 17:29] LABS: FOLATE 17.6 NG/ML; VITAMIN B12 LEVEL 388 PG/ML
[2020-11-24 18:43] LABS: HEMOGLOBIN A1c 5.3 %
== END ==
LOC: M LAB 13:57
PROVIDERS: ATTEND Psychiatry & Neurology Neurology
DX: G62.9 Polyneuropathy, unspecified (principal); M54.5 Low back pain; G89.29 Other chronic pain

== ENCOUNTER → 2020-12-07 | Outpatient (CLI) | payer OTHER | LOC: M LAB 14:58 | DX: Z79.899 Other long term (current) drug therapy (principal) ==

== ENCOUNTER → 2021-02-09 | Outpatient (REF) | payer OTHER ==
[2021-02-09 13:42] LABS: HEMATOCRIT 41.2 % (36.0-47.0); HEMOGLOBIN 12.8 g/dl (12.0-15.5); MEAN CORPUSCULAR HEMOGLOBIN 27.1 pg (27.0-33.0); MEAN CORPUSCULAR HGB CONC 31.1 g/dl (32.0-36.5); MEAN CORPUSCULAR VOLUME 87.3 fl (80.0-96.0); PLATELET COUNT, AUTOMATED 309 10^3/uL (150-450); RED BLOOD COUNT 4.72 10^6/uL (4.00-5.40)
[2021-02-09 14:19] LABS: ALT/SGPT 36 U/L (12-78); BILIRUBIN,TOTAL 0.3 MG/DL (0.2-1.0); BLOOD UREA NITROGEN 18 MG/DL (7-18); CALCIUM LEVEL 9.5 MG/DL (8.5-10.1); CARBON DIOXIDE LEVEL 21 MEQ/L (21-32); CHLORIDE LEVEL 108 MEQ/L (98-107); CREATININE FOR GFR 0.97 MG/DL (0.55-1.30); FERRITIN 32 NG/ML (8-252); GLOMERULAR FILTRATION RATE > 60.0 (>60); GLUCOSE, FASTING 84 MG/DL (70-100); IRON (FE) 51 UG/DL (50-170); PERCENT SATURATION 16.8 % (13.2-45.0); POTASSIUM SERUM 4.5 MEQ/L (3.5-5.1); SODIUM LEVEL 137 MEQ/L (136-145); TOTAL IRON BINDING CAPACITY 303 UG/DL (250-450); TOTAL PROTEIN 7.3 GM/DL (6.4-8.2)
== END ==
LOC: M SFHCPLAZ 12:12
PROVIDERS: ATTEND Nurse Practitioner Adult Health
DX: R42 Dizziness and giddiness (principal); F41.1 Generalized anxiety disorder; F33.3 Major depressive disorder, recurrent, severe with psychotic symptoms

== ENCOUNTER → 2021-02-28 | Outpatient (REF) | payer OTHER ==
[~2021-02-28] MED LIST changes: +GABA-283 PO; -GABA-845 PO
[2021-02-28 18:01] LABS: BASO # 0.1 10^3/uL (0.0-0.2); BASO % 0.4 % (0.0-1.0); EOS # 0.1 10^3/uL (0.0-0.5); HEMATOCRIT 48.1 % (36.0-47.0); HEMOGLOBIN 15.1 g/dl (12.0-15.5); LYMPH # 4.2 10^3/uL (1.5-5.0); LYMPH % 34.5 % (24.0-44.0); MEAN CORPUSCULAR HEMOGLOBIN 27.1 pg (27.0-33.0); MEAN CORPUSCULAR HGB CONC 31.4 g/dl (32.0-36.5); MEAN CORPUSCULAR VOLUME 86.4 fl (80.0-96.0); MONO # 0.9 10^3/uL (0.0-0.8); MONO % 7.5 % (2.0-8.0); NEUTROPHILS # 6.9 10^3/uL (1.5-8.5); NEUTROPHILS % 56.2 % (36.0-66.0); PLATELET COUNT, AUTOMATED 403 10^3/uL (150-450); RED BLOOD COUNT 5.57 10^6/uL (4.00-5.40); WHITE BLOOD COUNT 12.3 10^3/uL (4.0-10.0)
[2021-02-28 18:22] LABS: ALBUMIN 4.4 GM/DL (3.2-5.2); ALT/SGPT 43 U/L (12-78); BILIRUBIN,TOTAL 0.4 MG/DL (0.2-1.0); BLOOD UREA NITROGEN 14 MG/DL (7-18); CALCIUM LEVEL 9.7 MG/DL (8.5-10.1); CARBON DIOXIDE LEVEL 21 MEQ/L (21-32); CHLORIDE LEVEL 108 MEQ/L (98-107); CREATININE FOR GFR 0.96 MG/DL (0.55-1.30); GLOMERULAR FILTRATION RATE > 60.0 (>60); GLUCOSE, FASTING 83 MG/DL (70-100); LITHIUM LEVEL 0.29 MEQ/L (0.60-1.20); POTASSIUM SERUM 4.4 MEQ/L (3.5-5.1); SODIUM LEVEL 138 MEQ/L (136-145); TOTAL PROTEIN 8.2 GM/DL (6.4-8.2)
== END ==
LOC: M SFHCPLAZ 15:35
PROVIDERS: ATTEND Physician Assistant
DX: R11.2 Nausea with vomiting, unspecified (principal); R42 Dizziness and giddiness

== ENCOUNTER → 2021-09-28 | Outpatient (CLI) | payer OTHER ==
[~2021-09-28] MED LIST changes: +ISOVUE-370 76% 100ML VIAL As Ordered ONE
--- NOTE | 2021-09-28 12:29 | REP ---
INDICATION: NAUSEA, VOMITING, DIARRHEA, ABD PAIN COMPARISON: 12/15/2010. TECHNIQUE: CT Scan of the abdomen and pelvis was performed with intravenous administration of 100 cc of Isovue 370, and oral contrast. Sagittal and coronal reconstruction images are performed. FINDINGS: Lung bases: Unremarkable. Liver: There is diffuse fatty infiltration of the liver Gallbladder: Unremarkable. Spleen: Normal. Adrenals: Normal. Pancreas: Normal. Kidneys: Normal. Small and large bowel: Unremarkable. There is no free air or obstruction. Free fluid: None. Abdominal aorta: No aneurysm or dissection. Adenopathy: None. Appendix: There is no evidence of appendicitis. Osseous structures: Unremarkable. Pelvis: No mass. IMPRESSION: No free air or obstruction. No bowel wall thickening. Diffuse fatty infiltration of the liver. <Electronically signed by Kermit Flood > 09/28/21 [id number]
== END ==
LOC: M RAD 10:59
PROVIDERS: ATTEND Nurse Practitioner Adult Health
DX: R11.2 Nausea with vomiting, unspecified (principal); R19.7 Diarrhea, unspecified; R10.84 Generalized abdominal pain
CPT/HCPCS: 74177; Q9967

== ENCOUNTER → 2021-09-28 | Outpatient (CLI) | payer OTHER ==
[~2021-09-28] MED LIST changes: -ISOVUE-370 76% 100ML VIAL As Ordered ONE
[2021-09-28 13:11] LABS: HEMATOCRIT 47.6 % (36.0-47.0); MEAN CORPUSCULAR HEMOGLOBIN 27.8 pg (27.0-33.0); MEAN CORPUSCULAR HGB CONC 31.5 g/dl (32.0-36.5); MEAN CORPUSCULAR VOLUME 88.3 fl (80.0-96.0); PLATELET COUNT, AUTOMATED 338 10^3/uL (150-450); RED BLOOD COUNT 5.39 10^6/uL (4.00-5.40); WHITE BLOOD COUNT 11.4 10^3/uL (4.0-10.0)
[2021-09-28 14:15] LABS: HCG, SERUM QUALITATIVE NEGATIVE (NEGATIVE)
[2021-09-28 14:18] LABS: ALBUMIN 4.2 GM/DL (3.2-5.2); ALT/SGPT 59 U/L (12-78); AMYLASE 33 U/L (25-115); BILIRUBIN,TOTAL 0.4 MG/DL (0.2-1.0); BLOOD UREA NITROGEN 13 MG/DL (7-18); CALCIUM LEVEL 9.9 MG/DL (8.5-10.1); CARBON DIOXIDE LEVEL 25 MEQ/L (21-32); CHLORIDE LEVEL 107 MEQ/L (98-107); CREATININE FOR GFR 1.06 MG/DL (0.55-1.30); GLOMERULAR FILTRATION RATE > 60.0 (>60); GLUCOSE, FASTING 102 MG/DL (70-100); LIPASE 93 U/L (73-393); LITHIUM LEVEL 0.33 MEQ/L (0.60-1.20); POTASSIUM SERUM 4.6 MEQ/L (3.5-5.1); SODIUM LEVEL 140 MEQ/L (136-145); TOTAL PROTEIN 7.8 GM/DL (6.4-8.2)
== END ==
LOC: M PLALAB 10:00
PROVIDERS: ATTEND Nurse Practitioner Adult Health
DX: R11.2 Nausea with vomiting, unspecified (principal); R19.7 Diarrhea, unspecified; R10.84 Generalized abdominal pain; F41.1 Generalized anxiety disorder

== ENCOUNTER → 2022-01-19 | Outpatient (CLI) | payer OTHER ==
[~2022-01-19] MED LIST changes: -D31000TA2 PO; +VITA100093 PO
== END ==
LOC: M RAD 12:43
PROVIDERS: ATTEND Obstetrics & Gynecology
DX: R10.2 Pelvic and perineal pain (principal)

== ENCOUNTER → 2022-04-11 | Outpatient (CLI) | payer OTHER ==
[~2022-04-11] MED LIST changes: +EXCETAB32 PO; -EXCETAB33 PO; -ZONI100C17 PO; +ZONI100C67 PO
== END ==
LOC: M PAIN 13:30
PROVIDERS: ATTEND Nurse Practitioner Family
DX: M54.50 Low back pain, unspecified (principal); G89.29 Other chronic pain; G43.909 Migraine, unspecified, not intractable, without status migrainosus; J45.909 Unspecified asthma, uncomplicated; E55.9 Vitamin D deficiency, unspecified; M79.7 Fibromyalgia; Z86.59 Personal history of other mental and behavioral disorders; Z79.899 Other long term (current) drug therapy

== ENCOUNTER → 2022-04-11 | Outpatient (REF) | payer OTHER | LOC: M SFHCWAGY 13:12 | PROVIDERS: ATTEND Specialist | DX: Z12.4 Encounter for screening for malignant neoplasm of cervix (principal); A59.9 Trichomoniasis, unspecified ==

== ENCOUNTER → 2022-07-27 | Outpatient (REF) | payer OTHER | LOC: M SFHCWAGY 10:06 | PROVIDERS: ATTEND Nurse Practitioner Family | DX: Z11.3 Encounter for screening for infections with a predominantly sexual mode of transmission (principal) ==

== ENCOUNTER → 2023-02-27 | Outpatient (CLI) | payer OTHER | LOC: M PLAIMG 07:14 | PROVIDERS: ATTEND Internal Medicine | DX: M24.851 Other specific joint derangements of right hip, not elsewhere classified (principal); M79.89 Other specified soft tissue disorders ==

== ENCOUNTER 2023-08-26 07:02 | Day surgery (SDC) | payer OTHER ==
[~2023-08-26] VITALS: Ht 167.6 cm; Wt 98.3 kg
[~2023-08-26 07:02] MED LIST changes: -AMIT25TA17 PO; +AMIT25TA19 PO; +CELE0.09 PO; +FAMO20TA PO; -GABA-283 PO; +GABA-284 PO; -MEDR150I10 IM; +MEDR150I13 IM; +NS 1,000 ML IV ONE; +PREG100C2 PO; -PREG75CA2 PO; +PREG75CA3 PO; +QUET200T2 PO; +QUET50TA4 PO; -ROPI1TAB3 PO; +ROPI1TAB73 PO; +ROPI2TAB46 PO; +VRAY3CAP PO
[2023-08-26] MEDS ORDERED: propofoL 200 MG/20 ML VIAL As Ordered ONE ×2 (08:01→08:38)
[2023-08-26] MEDS ORDERED: LIDOCAINE 2% 100MG/5ML SDV (FOR ANES.) As Ordered ONE (08:01)
[2023-08-26 08:45] VITALS: TEMP 98.7
[2023-08-26 09:05] VITALS: BP 142/84; O2SAT 99
== END 2023-08-26 09:13 | disposition home or self-care (01) ==
LOC: M OPP 07:02
PROVIDERS: ATTEND Internal Medicine Gastroenterology
DX: K64.8 Other hemorrhoids (principal); K64.4 Residual hemorrhoidal skin tags; K52.89 Other specified noninfective gastroenteritis and colitis; K59.00 Constipation, unspecified; K92.1 Melena; Z79.1 Long term (current) use of non-steroidal anti-inflammatories (NSAID); Z79.3 Long term (current) use of hormonal contraceptives; Z79.51 Long term (current) use of inhaled steroids; Z79.52 Long term (current) use of systemic steroids; Z79.891 Long term (current) use of opiate analgesic; Z79.899 Other long term (current) drug therapy

== ENCOUNTER → 2023-08-29 | Outpatient (REF) | payer OTHER ==
[~2023-08-29] MED LIST changes: -NS 1,000 ML IV ONE
== END ==
LOC: M SFHCWAGY 18:07
PROVIDERS: ATTEND Specialist
DX: Z01.419 Encounter for gynecological examination (general) (routine) without abnormal findings (principal)

== ENCOUNTER 2024-06-02 13:30 | Inpatient (IN) | payer MEDICAID, OTHER ==
[~2024-06-02] VITALS: Ht 167.6 cm; Wt 105.4 kg
[~2024-06-02 13:30] MED LIST changes: +BUPR-597 PO; -BUPR300T92 PO
[2024-06-02 14:41] LABS: HEMATOCRIT 43.2 % (36.0-47.0); MEAN CORPUSCULAR HEMOGLOBIN 26.7 pg (27.0-33.0); MEAN CORPUSCULAR HGB CONC 32.4 g/dl (32.0-36.5); MEAN CORPUSCULAR VOLUME 82.4 fl (80.0-96.0); PLATELET COUNT, AUTOMATED 276 10^3/uL (150-450); RED BLOOD COUNT 5.24 10^6/uL (4.00-5.40); WHITE BLOOD COUNT 6.8 10^3/uL (4.0-10.0)
[2024-06-02 15:11] LABS: AMPHETAMINES LEVEL URINE NEGATIVE (NEGATIVE); BARBITURATES URINE NEGATIVE (NEGATIVE); BENZODIAZEPINES URINE NEGATIVE (NEGATIVE); COCAINE METABOLITE URINE NEGATIVE (NEGATIVE); METHADONE URINE NEGATIVE (NEGATIVE); OPIATES URINE NEGATIVE (NEGATIVE); PHENCYCLIDINE URINE NEGATIVE (NEGATIVE)
[2024-06-02 15:13] LABS: ETHYL ALCOHOL (ETHANOL) 0.007 % (0.000-0.010)
[2024-06-02 15:15] LABS: ALBUMIN 3.8 G/DL (3.2-5.2); ALKALINE PHOSPHATASE 101 U/L (46-116); ALT/SGPT 62 U/L (7.0-40); AST/SGOT 26 U/L (<34); BILIRUBIN,DIRECT < 0.1 MG/DL (<0.4); BILIRUBIN,TOTAL 0.2 MG/DL (0.3-1.2); BLOOD UREA NITROGEN 19 MG/DL (9-23); CALCIUM LEVEL 9.6 MG/DL (8.5-10.1); CARBON DIOXIDE LEVEL 19 MMOL/L (20-31); CHLORIDE LEVEL 112 MMOL/L (98-107); CREATININE FOR GFR 0.87 MG/DL (0.55-1.30); GLOMERULAR FILTRATION RATE > 60.0 (>60); GLUCOSE, FASTING 99 MG/DL (60-100); POTASSIUM SERUM 3.5 MMOL/L (3.5-5.1); SALICYLATE LEVEL < 3.0 MG/DL (<30); SODIUM LEVEL 140 MMOL/L (136-145); TOTAL PROTEIN 7.3 G/DL (5.7-8.2)
[2024-06-02 15:16] LABS: THYROID STIMULATING HORMONE 0.557 uIU/ML (0.55-4.78)
[2024-06-02 15:18] LABS: CANNABINOIDS URINE POSITIVE (NEGATIVE)
[2024-06-02 15:24] LABS: HCG, SERUM QUALITATIVE NEGATIVE (NEGATIVE)
[2024-06-02] MEDS ORDERED: AMOX875T PO (19:37)
[2024-06-02] MEDS ORDERED: LAMO25TA4 PO (19:37)
[2024-06-02] MEDS ORDERED: CLON0.5T2 PO (19:37)
[2024-06-02] MEDS ORDERED: DOXY100C3 PO (19:37)
[2024-06-02] MEDS ORDERED: OMEP40CA5 PO (19:37)
[2024-06-02] MEDS ORDERED: HYDR-3363 PO (19:37)
[2024-06-02] MEDS ORDERED: HOME MED LIST COMPLETE! XX SCH (19:40)
[2024-06-02] MEDS ORDERED: clonazePAM 0.5 MG TAB PO SCH (23:30)
[2024-06-02] MEDS ORDERED: ALBUTEROL 90 MCG/ACT 8GM HFA INHALER INH PRN (23:40)
[2024-06-03] MEDS ORDERED: clonazePAM 0.5 MG TAB PO PRN ×2 (00:25→20:55)
[2024-06-03] MEDS: rOPINIRole 1MG TAB PO SCH (00:55)
[2024-06-03] MEDS: ZONISAMIDE 100 MG CAP (ZONEGRAN) PO SCH ×2 (00:55→21:48)
[2024-06-03] MEDS: QUEtiapine FUMARATE 200 MG TAB PO SCH ×2 (00:55→21:47)
[2024-06-03] MEDS: PREGABALIN 100 MG CAP (LYRICA) PO SCH ×2 (00:55→21:47)
[2024-06-03] MEDS: AMOXICILLIN 875 MG TAB PO SCH (00:55)
[2024-06-03] MEDS: DULoxetine 30MG CAPSULE (CYMBALTA) PO SCH ×2 (00:56→21:48)
[2024-06-03] MEDS: DOXYCYCLINE HYCLATE 100MG TABLET PO SCH (00:56)
[2024-06-03] MEDS: lamoTRIgine 25MG TAB PO SCH (10:32)
[2024-06-03] MEDS ORDERED: diphenhydrAMINE 25MG CAP PO PRN (15:50)
[2024-06-03] MEDS ORDERED: MAALOX 30 ML SUSP *UDC PO PRN (15:50)
[2024-06-03 19:06] VITALS: BP 133/77; TEMP 96.8; O2SAT 97
[2024-06-03] MEDS: ACETAMINOPHEN TAB 650MG DOSE (2X325MG) PO PRN (19:07)
[2024-06-03] MEDS ORDERED: ALBUTEROL 90 MCG/ACT 8GM HFA INHALER INH PRN (20:55)
[2024-06-03] MEDS: rOPINIRole 2MG TAB PO SCH (21:48)
[2024-06-04 06:14] VITALS: BP 126/75; TEMP 98.4; O2SAT 98
[2024-06-04] MEDS: OMEPRAZOLE 20MG CAP PO SCH (08:20)
[2024-06-04] MEDS: lamoTRIgine 25MG TAB PO SCH (08:20)
[2024-06-04] MEDS: DULoxetine 30MG CAPSULE (CYMBALTA) PO SCH (13:08)
[2024-06-04 15:46] VITALS: BP 128/80; TEMP 97.2; O2SAT 99
[2024-06-04 18:22] LABS: BLOOD UREA NITROGEN 20 MG/DL (9-23); CALCIUM LEVEL 9.4 MG/DL (8.5-10.1); CARBON DIOXIDE LEVEL 22 MMOL/L (20-31); CHLORIDE LEVEL 110 MMOL/L (98-107); CREATININE FOR GFR 0.91 MG/DL (0.55-1.30); GLOMERULAR FILTRATION RATE > 60.0 (>60); GLUCOSE, FASTING 88 MG/DL (60-100); POTASSIUM SERUM 3.7 MMOL/L (3.5-5.1); SODIUM LEVEL 141 MMOL/L (136-145)
[2024-06-05 06:18] VITALS: BP 126/58; TEMP 98.1; O2SAT 98
[2024-06-05] MEDS: lamoTRIgine 25MG TAB PO SCH (08:11)
[2024-06-05] MEDS: IBUPROFEN 400MG TAB PO PRN (09:56)
[2024-06-05] MEDS ORDERED: EXCEDRIN MIGRAINE TABLET PO PRN (11:30)
[2024-06-05 16:34] VITALS: BP 128/88; TEMP 97.8; O2SAT 98
[2024-06-05] MEDS: EXCEDRIN MIGRAINE TABLET PO PRN (18:08)
[2024-06-05] MEDS: traZODone 50 MG TAB PO PRN (20:50)
[2024-06-06 06:00] VITALS: BP 149/75; TEMP 97.6; O2SAT 98
[2024-06-06] MEDS: hydrOXYzine 50 MG TAB PO SCH (12:26)
[2024-06-06 15:50] VITALS: BP 119/73; TEMP 97.6; O2SAT 96
[2024-06-07 06:11] VITALS: BP 133/73; TEMP 97.2; O2SAT 97
[2024-06-07] MEDS: lamoTRIgine 100MG TAB PO SCH (09:14)
[2024-06-07] MEDS: MOM 30ML SUSPENSION UDC PO PRN (13:05)
[2024-06-07 16:48] VITALS: BP 120/76; TEMP 97.9; O2SAT 97
[2024-06-08 06:14] VITALS: BP 131/61; TEMP 97.8; O2SAT 98
[2024-06-08] MEDS ORDERED: HYDR50TA70 PO (11:21)
[2024-06-08] MEDS ORDERED: LAMO100T80 PO (11:21)
[2024-06-08] MEDS ORDERED: CYMB1CAP5 PO (11:21)
== END 2024-06-08 12:39 | disposition home or self-care (01) | DRG 754 ==
LOC: M ED 13:30 → M ED INP 06-03 15:46 → M PSY 06-03 18:08
PROVIDERS: ADMIT Psychiatry & Neurology Child & Adolescent Psychiatry; ATTEND Psychiatry & Neurology Child & Adolescent Psychiatry
DX: F43.21 Adjustment disorder with depressed mood (principal); G40.909 Epilepsy, unspecified, not intractable, without status epilepticus; R45.851 Suicidal ideations; F41.9 Anxiety disorder, unspecified; G43.909 Migraine, unspecified, not intractable, without status migrainosus; M79.7 Fibromyalgia; Z91.410 Personal history of adult physical and sexual abuse; Z91.51 Personal history of suicidal behavior; Z79.2 Long term (current) use of antibiotics; Z79.899 Other long term (current) drug therapy; Z11.52 Encounter for screening for COVID-19; J45.909 Unspecified asthma, uncomplicated; K21.9 Gastro-esophageal reflux disease without esophagitis; K58.9 Irritable bowel syndrome, unspecified; E66.9 Obesity, unspecified; Z68.37 Body mass index [BMI] 37.0-37.9, adult

== ENCOUNTER → 2024-12-14 | Outpatient (CLI) | payer OTHER ==
[~2024-12-14] MED LIST changes: +AMOX875T PO; +CLON0.5T2 PO; +CYMB1CAP5 PO; +DOXY100C3 PO; +HYDR50TA70 PO; +LAMO100T80 PO; +LAMO25TA4 PO; +OMEP40CA5 PO
[2024-12-14 19:09] LABS: CPK CREATINE PHOSPHOKINASE 178 U/L (34-145); RHEUMATOID FACTOR QUANT 4.6 IU/ML (<14)
[2024-12-14 19:10] LABS: ALBUMIN 4.1 G/DL (3.2-5.2); ALKALINE PHOSPHATASE 119 U/L (35-104); ALT/SGPT 31 U/L (7.0-40); AST/SGOT 12 U/L (<34); BILIRUBIN,TOTAL 0.3 MG/DL (0.3-1.2); BLOOD UREA NITROGEN 19 MG/DL (9-23); CALCIUM LEVEL 9.1 MG/DL (8.5-10.1); CARBON DIOXIDE LEVEL 19 MMOL/L (20-31); CHLORIDE LEVEL 108 MMOL/L (98-107); CREATININE FOR GFR 0.81 MG/DL (0.55-1.30); GLOMERULAR FILTRATION RATE > 60.0 (>60); GLUCOSE, FASTING 85 MG/DL (60-100); POTASSIUM SERUM 4.2 MMOL/L (3.5-5.1); SODIUM LEVEL 140 MMOL/L (136-145); TOTAL PROTEIN 7.6 G/DL (5.7-8.2)
[2024-12-14 19:11] LABS: BASO # 0.1 10^3/uL (0.0-0.2); BASO % 0.4 % (0.0-1.0); EOS # 0.2 10^3/uL (0.0-0.5); EOS % 1.4 % (0.0-3.0); HEMATOCRIT 46.6 % (36.0-47.0); HEMOGLOBIN 14.9 g/dl (12.0-15.5); LYMPH # 3.6 10^3/uL (1.5-5.0); LYMPH % 30.3 % (24.0-44.0); MEAN CORPUSCULAR HEMOGLOBIN 26.7 pg (27.0-33.0); MEAN CORPUSCULAR VOLUME 83.4 fl (80.0-96.0); MONO # 0.9 10^3/uL (0.0-0.8); MONO % 7.6 % (2.0-8.0); NEUTROPHILS # 7.1 10^3/uL (1.5-8.5); PLATELET COUNT, AUTOMATED 418 10^3/uL (150-450); RED BLOOD COUNT 5.59 10^6/uL (4.00-5.40); WHITE BLOOD COUNT 11.9 10^3/uL (4.0-10.0)
[2024-12-14 19:21] LABS: ERYTHROCYTE SEDIMENTATION RATE 39 mm/hr (0-20)
== END ==
LOC: M PLALAB 15:51
PROVIDERS: ATTEND Nurse Practitioner Adult Health
DX: M25.541 Pain in joints of right hand (principal); M25.542 Pain in joints of left hand; M25.561 Pain in right knee; M25.531 Pain in right wrist; M25.60 Stiffness of unspecified joint, not elsewhere classified; E55.9 Vitamin D deficiency, unspecified; R74.8 Abnormal levels of other serum enzymes; M79.10 Myalgia, unspecified site

== ENCOUNTER → 2025-02-04 | Outpatient (REF) | payer OTHER ==
[2025-02-06 15:02] LABS: HPV APTIMA Not Detected (Not Detected)
== END ==
LOC: M PLALAB 11:17
PROVIDERS: ATTEND Specialist
DX: Z12.4 Encounter for screening for malignant neoplasm of cervix (principal); R87.612 Low grade squamous intraepithelial lesion on cytologic smear of cervix (LGSIL)

== ENCOUNTER → 2025-03-05 | Outpatient (CLI) | payer OTHER ==
[~2025-03-05] MED LIST changes: -BUPR-597 PO; +BUPR-766 PO; +LAMO-18 PO; -LAMO25TA4 PO; +TOPI-256 PO; -TOPI25TA10 PO
== END ==
LOC: M RAD 12:50
PROVIDERS: ATTEND Specialist
DX: R10.2 Pelvic and perineal pain (principal)

== ENCOUNTER → 2025-03-11 | Outpatient (REF) | payer OTHER | LOC: M SFHCPLAZ 09:54 | PROVIDERS: ATTEND Nurse Practitioner Adult Health | DX: R19.7 Diarrhea, unspecified (principal) ==

== ENCOUNTER → 2025-04-22 | Outpatient (REF) | payer OTHER | LOC: M SFHCRHEU 12:11 | PROVIDERS: ATTEND Internal Medicine | DX: Z53.9 Procedure and treatment not carried out, unspecified reason (principal) ==

== ENCOUNTER → 2025-04-26 | Outpatient (REF) | payer OTHER | LOC: M SFHCWAGY 16:52 | PROVIDERS: ATTEND Specialist | DX: R87.612 Low grade squamous intraepithelial lesion on cytologic smear of cervix (LGSIL) (principal) ==

== ENCOUNTER → 2025-09-08 | Outpatient (CLI) | payer OTHER ==
[~2025-09-08] MED LIST changes: -IBUP-1022 PO; +IBUP600T42 PO
== END ==
LOC: M RAD 07:05
PROVIDERS: ATTEND Pain Medicine Interventional Pain Medicine
DX: M54.16 Radiculopathy, lumbar region (principal); M47.815 Spondylosis without myelopathy or radiculopathy, thoracolumbar region; M47.817 Spondylosis without myelopathy or radiculopathy, lumbosacral region